=== PATIENT | female | born 1960 | race Caucasian/White ===

== ENCOUNTER 2016-08-10 09:45 | Outpatient (CLI) | END 2016-08-10 09:46 | disposition home or self-care (01) ==

== ENCOUNTER 2016-08-24 10:26 | Outpatient (CLI) | payer BC | END 2016-08-24 10:27 | disposition home or self-care (01) | DX: E04.9 Nontoxic goiter, unspecified (principal) ==

== ENCOUNTER 2016-10-11 08:19 | Outpatient (CLI) | payer BC | END 2016-10-11 08:20 | disposition home or self-care (01) | DX: D69.6 Thrombocytopenia, unspecified (principal) ==

== ENCOUNTER 2017-09-05 09:21 | Outpatient (CLI) | payer BC ==
[2017-09-05 10:33] LABS: ALBUMIN/GLOBULIN RATIO 1.3 (1.0-2.2); BILIRUBIN,TOTAL 0.6 mg/dL (0.2-1.0); CALCIUM 8.9 mg/dL (8.5-10.3); CREATININE 0.6 mg/dL (0.4-1.0); TOTAL PROTEIN 7.1 g/dL (6.7-8.2)
== END 2017-09-05 09:22 | disposition home or self-care (01) ==
LOC: LAB 09:21
PROVIDERS: ATTEND Nurse Practitioner Primary Care
DX: R55 Syncope and collapse (principal); I10 Essential (primary) hypertension; Z79.899 Other long term (current) drug therapy
CPT/HCPCS: 36415; 80053; 82306; 84443; 86200

== ENCOUNTER 2017-09-06 11:39 | Outpatient (CLI) | payer BC ==
[2017-09-06 12:09] LABS: BASOPHILS # (AUTO) 0.1 10^3/uL (0.0-0.1); BASOPHILS % (AUTO) 1.4 %; EOSINOPHILS # (AUTO) 0.1 10^3/uL (0.0-0.7); EOSINOPHILS % (AUTO) 2.9 %; LYMPHOCYTES # (AUTO) 2.2 10^3/uL (1.5-3.5); LYMPHOCYTES % (AUTO) 44.4 %; MEAN CORPUSCULAR HEMOGLOBIN 31.1 pg (27.0-31.0); MEAN CORPUSCULAR HGB CONC 33.2 g/dL (32.0-36.0); MEAN CORPUSCULAR VOLUME 93.5 fL (81.0-99.0); MEAN PLATELET VOLUME 7.9 fL (7.9-10.8); MONOCYTES # (AUTO) 0.5 10^3/uL (0.0-1.0); MONOCYTES % (AUTO) 9.1 %; NEUTROPHILS # (AUTO) 2.1 10^3/uL (1.5-6.6); NEUTROPHILS % (AUTO) 42.2 %; PLT - PLATELET COUNT 165 10^3/uL (130-450); RED CELL DISTRIBUTION WIDTH 14.4 % (12.0-15.0)
== END 2017-09-06 11:40 | disposition home or self-care (01) ==
LOC: LAB 11:39
PROVIDERS: ATTEND Nurse Practitioner Primary Care
DX: R55 Syncope and collapse (principal); I10 Essential (primary) hypertension; Z79.899 Other long term (current) drug therapy
CPT/HCPCS: 85025

== ENCOUNTER 2018-03-11 11:43 | Outpatient (CLI) | payer BC ==
--- NOTE | 2018-03-12 10:53 | Mammography Report ---
Procedure Date: 03/11/2018 Accession Number: [id number] / [id number] Procedure: MGN - Screening Mammo Dig Bilat CPT Code: FULL RESULT: EXAM: Screening Mammo Dig Bilat DATE: 03/11/2018 12:03 PM CLINICAL HISTORY: 57-year-old female with history of right breast cancer status post lumpectomy and radiation presents for screening mammogram. TECHNIQUE: Bilateral CC and MLO views were obtained. COMPARISON: 04/21/2016, 05/04/2015, 03/09/2014, 07/09/2013. FINDINGS: The breasts demonstrate heterogeneously dense fibroglandular parenchyma bilaterally. Postsurgical changes in the right breast are stable. There are typically benign coarse right breast calcifications. There are typically benign vascular calcifications in the left breast. No suspicious masses, clustered microcalcifications, or regions of architectural distortion are identified. IMPRESSION: Benign findings RECOMMENDATION: Routine annual screening unless otherwise clinically indicated. BIRADS CATEGORY 2: Benign findings STANDARD QUALIFYING STATEMENTS: 1. This examination was reviewed with the aid of Computer-Aided Detection (CAD). 2. A negative or benign imaging report should not delay biopsy if clinically suspicious findings are present. Consider surgical consultation if warrented. More than 5% of cancers are not identified by imaging. 3. Dense breasts may obscure an underlying neoplasm.
== END 2018-03-11 11:44 | disposition home or self-care (01) ==
LOC: DI.N 11:43
PROVIDERS: ATTEND Radiology Diagnostic Radiology
DX: Z12.31 Encounter for screening mammogram for malignant neoplasm of breast (principal); Z85.3 Personal history of malignant neoplasm of breast
CPT/HCPCS: 77067

== ENCOUNTER 2019-07-11 09:17 | Outpatient (CLI) | payer BC ==
--- NOTE | 2019-07-14 09:28 | Mammography Report ---
Reason: ROUTINE MAMMO Procedure Date: 07/11/2019 Accession Number: [id number] / [id number] Procedure: RENEE - Screening Mammo w/Allen CPT Code: Final Report FULL RESULT: EXAM: Screening Mammo w/Allen DATE: 07/11/2019 9:57 AM CLINICAL HISTORY: Screening encounter. History of late childbearing. Personal history of breast cancer status post right lumpectomy in 2013. TECHNIQUE: (B) - Bilateral CC and MLO views were obtained. Right laterally exaggerated CC views obtained COMPARISON: 03/11/2018 through 07/09/2013. PARENCHYMAL PATTERN: (D) - The breast(s) demonstrate(s) heterogeneously dense fibroglandular parenchyma. FINDINGS: Postlumpectomy changes in the right breast are again seen without suspicious interval change, typically benign. There are no suspicious masses, calcifications, or areas of distortion. IMPRESSION: Benign findings. BI-RADS category 2. RECOMMENDATION: (ANNUAL) - Recommend routine annual screening mammography. BI-RADS CATEGORY: (2) - Benign Findings. STANDARD QUALIFYING STATEMENTS: 1. This examination was not reviewed with the aid of Computer-Aided Detection (CAD). 2. A negative or benign imaging report should not preclude biopsy if clinically suspicious findings are present. 3. Dense breasts may obscure an underlying neoplasm. 4. This examination was reviewed with the aid of 3D breast imaging (tomosynthesis).
== END 2019-07-11 09:18 | disposition home or self-care (01) ==
LOC: DI 09:17
PROVIDERS: ATTEND Registered Nurse
DX: Z12.31 Encounter for screening mammogram for malignant neoplasm of breast (principal); Z85.3 Personal history of malignant neoplasm of breast
CPT/HCPCS: 77063; 77067

== ENCOUNTER 2019-07-11 09:19 | Outpatient (CLI) | payer BC ==
--- NOTE | 2019-07-12 14:03 | XRAY Report ---
Reason: HX OF BREAST CANCER Procedure Date: 07/11/2019 Accession Number: [id number] / [id number] Procedure: XR - Chest 2 View X-Ray CPT Code: 27710 Final Report FULL RESULT: EXAM: CHEST RADIOGRAPHY EXAM DATE: 07/11/2019 09:58 AM. CLINICAL HISTORY: History of breast cancer. COMPARISON: None. TECHNIQUE: 2 views. FINDINGS: Lungs/Pleura: No focal opacities evident. No pleural effusion. No pneumothorax. Normal volumes. Mediastinum: Heart and mediastinal contours are unremarkable. Other: None. IMPRESSION: Normal 2-view chest radiography. RADIA
--- NOTE | 2019-07-14 08:36 | DEXA Report ---
Reason: DGN. JNT DISEASE OF BILAT 1ST [facility] JNTS Procedure Date: 07/11/2019 Accession Number: [id number] / [id number] Procedure: DEX - Dexa Spine and/or Hip CPT Code: Final Report FULL RESULT: EXAM: Dexa Spine and/or Hip DATE: 07/11/2019 10:02 AM CLINICAL HISTORY: DGN. JNT DISEASE OF BILAT 1ST [facility] JNTS TECHNIQUE: Dual energy x-ray absorptiometry (DXA) was performed on a [employer] System. Regions measured are the AP Spine, femoral neck, and if needed forearm. COMPARISON: None. In accordance with the International Society for Clinical Densitometry (ISCD) guidelines, data from previous exams may be reanalyzed using current recommendations and techniques. This is done to allow a more accurate basis for comparison with the current study. FINDINGS: The data for the lumbar spine is as follows: BMD (g/cm/cm) T-SCORE Z-SCORE REGION L1 1.213 0.7 1.2 L2 1.348 1.2 1.8 L3 1.465 2.2 2.7 L4 1.370 1.4 2.0 TOTAL 1.354 1.4 2.0 NOTE: All evaluable vertebrae are used for classification The data for the hip is as follows: BMD (g/cm/cm) T-SCORE Z-SCORE REGION Neck 1.154 0.8 1.6 TOTAL 1.128 1.0 1.4 NOTE: The femoral neck or total proximal femur, whichever is lowest, is used for classification. IMPRESSION: THE WHO CLASSIFICATION BASED ON THE INTERNATIONAL REFERENCE STANDARD IS NORMAL. THE FRACTURE RISK IS NOT INCREASED. RECOMMENDATION: Patients with diagnosis of osteoporosis or osteopenia should have regular bone mineral density assessment. For those eligible for Medicare, routine testing is allowed once every 2 years. Testing frequency can be increased for patients who have rapidly progressing disease or for those who are receiving medical therapy to restore bone mass. COMMENT: World Health Organization (WHO) definitions for osteoporosis and osteopenia: NORMAL BMD: T-score at -1.0 or higher, fracture risk is low OSTEOPENIA BMD: T-score between -1.0 and -2.5, fracture risk is increased. OSTEOPOROSIS BMD: T-score at -2.5 or lower, fracture risk is high. National Osteoporosis Foundation recommends: 1. Obtain adequate dietary calcium (at least 1200 mg per day) and vitamin D (400-800 international units per day). 2. Participate, as appropriate, in regular weightbearing and muscle-strengthening exercise. 3. Avoid tobacco use and reduce alcohol and caffeine intake. 4. For more detailed information see the website at www.NOF.org.
== END 2019-07-11 09:20 | disposition home or self-care (01) ==
LOC: DI 09:19
PROVIDERS: ATTEND Registered Nurse
DX: Z78.0 Asymptomatic menopausal state (principal); Z85.3 Personal history of malignant neoplasm of breast
CPT/HCPCS: 71046; 77080

== ENCOUNTER 2019-07-23 09:59 | Outpatient (CLI) | payer BC ==
[2019-07-23 10:11] LABS: BASOPHILS % (AUTO) 0.4 %; EOSINOPHILS # (AUTO) 0.2 10^3/uL (0.0-0.7); EOSINOPHILS % (AUTO) 2.6 %; LYMPHOCYTES # (AUTO) 3.4 10^3/uL (1.5-3.5); LYMPHOCYTES % (AUTO) 45.3 %; MEAN CORPUSCULAR HEMOGLOBIN 28.6 pg (27.0-31.0); MEAN CORPUSCULAR HGB CONC 31.9 g/dL (32.0-36.0); MEAN CORPUSCULAR VOLUME 89.7 fL (81.0-99.0); MEAN PLATELET VOLUME 9.1 fL (7.9-10.8); MONOCYTES # (AUTO) 0.4 10^3/uL (0.0-1.0); MONOCYTES % (AUTO) 5.9 %; NEUTROPHILS # (AUTO) 3.4 10^3/uL (1.5-6.6); NEUTROPHILS % (AUTO) 45.5 %; PLT - PLATELET COUNT 226 10^3/uL (130-450); RED BLOOD COUNT 4.55 10^6/uL (4.20-5.40); RED CELL DISTRIBUTION WIDTH 13.8 % (12.0-15.0); WHITE BLOOD COUNT 7.4 x10^3/uL (4.8-10.8)
[2019-07-23 10:35] LABS: ALBUMIN 4.4 g/dL (3.2-5.5); ALBUMIN/GLOBULIN RATIO 1.4 (1.0-2.2); ALKALINE PHOSPHATASE 76 IU/L (42-121); ALT ALANINE AMINOTRANSFERASE 22 IU/L (10-60); AST ASPARTATE AMINOTRANSFERASE 25 IU/L (10-42); BILIRUBIN,TOTAL 0.5 mg/dL (0.2-1.0); BUN - BLOOD UREA NITROGEN 17 mg/dL (6-20); CALCIUM 9.4 mg/dL (8.5-10.3); CARBON DIOXIDE - CO2 28 mmol/L (21-32); CHLORIDE 100 mmol/L (101-111); CHOL/HDL RATIO 3.7 (<4.4); CHOLESTEROL 277 mg/dL; CREATININE 0.8 mg/dL (0.4-1.0); GFR - MDRD 73 (>89); GLUCOSE 156 mg/dL (70-100); HB2 TOTAL 13.2 g/dL; HDL CHOLESTEROL 75 mg/dL; HEMOGLOBIN A1C 0.65 g/dL; HEMOGLOBIN A1C % 6.7 % (4.6-6.2); LDL CHOLESTEROL,CALCULATED 170 mg/dL; LDL/HDL RATIO 2.3 (<4.4); SODIUM 139 mmol/L (135-145); TOTAL PROTEIN 7.5 g/dL (6.7-8.2); VLDL CHOLESTEROL 32 mg/dL
== END 2019-07-23 10:00 | disposition home or self-care (01) ==
LOC: LAB 09:59
PROVIDERS: ATTEND Registered Nurse
DX: I10 Essential (primary) hypertension (principal); Z85.3 Personal history of malignant neoplasm of breast; K21.0 Gastro-esophageal reflux disease with esophagitis; E78.2 Mixed hyperlipidemia; F32.9 Major depressive disorder, single episode, unspecified; F41.9 Anxiety disorder, unspecified
CPT/HCPCS: 36415; 80053; 80061; 83036; 83721; 84443; 85025; 86304

== ENCOUNTER 2019-12-09 09:27 | Outpatient (CLI) | payer BC, OTHER ==
[2019-12-09 13:35] LABS: HEMOGLOBIN A1C 0.49 g/dL; HEMOGLOBIN A1C % 5.6 % (4.6-6.2)
[2019-12-09 13:42] LABS: CREATININE 1.5 mg/dL (0.4-1.0)
[2019-12-09 13:48] LABS: CALCIUM 14.8 mg/dL (8.5-10.3); CREATININE,URINE 43.2 mg/dL; MICROALBUM/CREATININE RATIO,UR 23.1 ug/mg (<30.0)
== END 2019-12-09 23:59 | disposition home or self-care (01) ==
LOC: LAB.WCP 09:27
PROVIDERS: ATTEND Registered Nurse
DX: R73.9 Hyperglycemia, unspecified (principal)
CPT/HCPCS: 36415; 80048; 82043; 82570; 83036

== ENCOUNTER 2019-12-10 13:45 | Outpatient (CLI) | payer OTHER ==
[2019-12-10 17:46] LABS: BASOPHILS # (AUTO) 0.1 10^3/uL (0.0-0.1); BASOPHILS % (AUTO) 0.5 %; EOSINOPHILS # (AUTO) 0.1 10^3/uL (0.0-0.7); HGB - HEMOGLOBIN 12.7 g/dL (12.0-16.0); LYMPHOCYTES # (AUTO) 3.5 10^3/uL (1.5-3.5); MEAN CORPUSCULAR HEMOGLOBIN 28.5 pg (27.0-31.0); MEAN CORPUSCULAR HGB CONC 31.8 g/dL (32.0-36.0); MEAN CORPUSCULAR VOLUME 89.7 fL (81.0-99.0); MEAN PLATELET VOLUME 10.5 fL (7.9-10.8); MONOCYTES # (AUTO) 1.1 10^3/uL (0.0-1.0); MONOCYTES % (AUTO) 10.1 %; NEUTROPHILS # (AUTO) 6.2 10^3/uL (1.5-6.6); NEUTROPHILS % (AUTO) 55.9 %; PLT - PLATELET COUNT 317 10^3/uL (130-450); RED BLOOD COUNT 4.46 10^6/uL (4.20-5.40); RED CELL DISTRIBUTION WIDTH 13.7 % (12.0-15.0); WHITE BLOOD COUNT 11.1 x10^3/uL (4.8-10.8)
[2019-12-10 18:45] LABS: ALBUMIN 4.4 g/dL (3.2-5.5); ALBUMIN/GLOBULIN RATIO 1.2 (1.0-2.2); BILIRUBIN,TOTAL 0.6 mg/dL (0.2-1.0); CREATININE 1.8 mg/dL (0.4-1.0); TOTAL PROTEIN 8.2 g/dL (6.7-8.2)
[2019-12-10 19:00] LABS: CALCIUM 15.4 mg/dL (8.5-10.3)
[2019-12-12 17:40] LABS: ALBUMIN 4.2 g/dL (3.8-4.8); ALPHA 1 GLOBULIN 0.4 g/dL (0.2-0.3); BETA 1 GLOBULIN 0.5 g/dL (0.4-0.6); BETA 2 GLOBULIN 0.5 g/dL (0.2-0.5); GAMMA GLOBULIN 1.1 g/dL (0.8-1.7)
== END 2019-12-10 23:59 | disposition home or self-care (01) ==
LOC: LAB.WCP 13:45
PROVIDERS: ATTEND Family Medicine
DX: E83.52 Hypercalcemia (principal); Z85.3 Personal history of malignant neoplasm of breast; M54.5 Low back pain; M54.6 Pain in thoracic spine
CPT/HCPCS: 36415; 80053; 81599; 82306; 83615; 83883; 83970; 84155; 84165; 85025

== ENCOUNTER 2019-12-10 14:13 | Outpatient (CLI) | payer OTHER ==
--- NOTE | 2019-12-11 03:11 | XRAY Report ---
Reason: THORACIC BACK PAIN Procedure Date: 12/10/2019 Accession Number: [id number] / [id number] Procedure: WCP - Thoracic Spine 2 View CPT Code: Final Report FULL RESULT: EXAM: THORACIC SPINE RADIOGRAPHY EXAM DATE: 12/10/2019 02:13 PM. CLINICAL HISTORY: THORACIC BACK PAIN. COMPARISON: CHEST 2 VIEW 07/11/2019 9:58 AM. TECHNIQUE: 2 views. FINDINGS: Alignment: Slight rightward curvature may be positional. No spondylolisthesis or scoliosis. Bones: No fractures or bone lesions. Disks: Multilevel disk height loss and endplate sclerosis/osteophytosis noted primarily in the mid and lower thoracic spine. Soft Tissues: Normal. The visualized lungs and cardiomediastinal silhouette are normal. IMPRESSION: 1. No evidence of acute pathology in the thoracic spine. 2. Mild to moderate mid-lower thoracic degenerative change. RADIA
--- NOTE | 2019-12-11 03:14 | XRAY Report ---
Reason: ACUTE LOW BACK PAIN Procedure Date: 12/10/2019 Accession Number: [id number] / [id number] Procedure: WCP - Lumbar Spine 2 View CPT Code: Final Report FULL RESULT: EXAM: LUMBOSACRAL SPINE RADIOGRAPHY EXAM DATE: 12/10/2019 02:13 PM. CLINICAL HISTORY: ACUTE LOW BACK PAIN. COMPARISONS: None. TECHNIQUE: 2 views. FINDINGS: Alignment: There is slight leftward curvature at the thoracolumbar junction. Trace anterolisthesis is visualized at L3 on L4. Bones: Five [id number] lumbar vertebral bodies are present. No fractures or bone lesions. Disks: Mild to moderate disk height loss is visualized at L1-L2, L2-L3 and L3-L4. Associated sclerosis and osteophytosis are noted. Mild degenerative changes noted at L4-L5. Facets: Moderate facet hypertrophy and sclerosis is noted in the mid and lower lumbar spine. Sacroiliac Joints: Unremarkable. Soft Tissues: Mild fecal stasis is noted. IMPRESSION: 1. No evidence of acute pathology in the lumbar spine. 2. Multilevel degenerative disk disease and mid-lower lumbar facet arthropathy. RADIA
== END 2019-12-10 23:59 | disposition home or self-care (01) ==
LOC: DI.WCP 14:13
PROVIDERS: ATTEND Family Medicine
DX: M51.34 Other intervertebral disc degeneration, thoracic region (principal); M51.36 Other intervertebral disc degeneration, lumbar region; M47.816 Spondylosis without myelopathy or radiculopathy, lumbar region; Z85.3 Personal history of malignant neoplasm of breast; E83.52 Hypercalcemia
CPT/HCPCS: 36415; 72070; 72100; 80053; 82306; 83615; 83883; 83970; 84155; 84165; 85025

== ENCOUNTER 2019-12-11 08:00 | Outpatient (CLI) | payer OTHER ==
[2019-12-11 10:19] LABS: MAGNESIUM 2.3 mg/dL (1.7-2.8); PHOSPHORUS 4.4 mg/dL (2.5-4.6)
== END 2019-12-11 23:59 | disposition home or self-care (01) ==
LOC: LAB 08:00
PROVIDERS: ATTEND Family Medicine
DX: E83.52 Hypercalcemia (principal)
CPT/HCPCS: 83735; 84100; 84443

== ENCOUNTER 2019-12-11 09:41 | Emergency (ER) | payer OTHER ==
[2019-12-11] MEDS ORDERED: CALCITONIN NASAL SPRAY NAS STA (09:48)
[2019-12-11] MEDS ORDERED: SODIUM CHLORIDE 0.9% 1,000 ML IV ONE (09:51)
[2019-12-11] MEDS ORDERED: ZOLEDRONIC ACID 4 MG in SODIUM CHLORIDE 0.9% 100ML 100 ML IV STA (10:01)
[2019-12-11 10:21] LABS: BASOPHILS # (AUTO) 0.1 10^3/uL (0.0-0.1); BASOPHILS % (AUTO) 0.6 %; EOSINOPHILS # (AUTO) 0.1 10^3/uL (0.0-0.7); EOSINOPHILS % (AUTO) 1.2 %; HGB - HEMOGLOBIN 12.4 g/dL (12.0-16.0); LYMPHOCYTES # (AUTO) 4.2 10^3/uL (1.5-3.5); LYMPHOCYTES % (AUTO) 39.1 %; MEAN CORPUSCULAR HEMOGLOBIN 28.4 pg (27.0-31.0); MEAN CORPUSCULAR HGB CONC 32.6 g/dL (32.0-36.0); MEAN PLATELET VOLUME 9.9 fL (7.9-10.8); MONOCYTES # (AUTO) 1.1 10^3/uL (0.0-1.0); MONOCYTES % (AUTO) 9.7 %; NEUTROPHILS # (AUTO) 5.3 10^3/uL (1.5-6.6); NEUTROPHILS % (AUTO) 48.8 %; PLT - PLATELET COUNT 310 10^3/uL (130-450); RED BLOOD COUNT 4.37 10^6/uL (4.20-5.40); RED CELL DISTRIBUTION WIDTH 13.6 % (12.0-15.0); WHITE BLOOD COUNT 10.8 x10^3/uL (4.8-10.8)
[2019-12-11 10:35] LABS: ALBUMIN 4.4 g/dL (3.2-5.5); ALBUMIN/GLOBULIN RATIO 1.2 (1.0-2.2); BILIRUBIN,TOTAL 0.4 mg/dL (0.2-1.0); CREATININE 1.5 mg/dL (0.4-1.0)
[2019-12-11] MEDS: ZOLEDRONIC ACID 4 MG/100 ML 4 MG/100 ML BAG IV ONE ×2 (10:38→10:39)
--- NOTE | 2019-12-11 11:38 | ED Physician Documentation ---
History of Present Illness - Stated complaint Stated Complaint: ABNORMAL LABS - Chief complaint Chief Complaint: General - History obtained from History obtained from: Patient - History of Present Illness Timing: How many days ago (4) - Additonal information Additional information: 59-year-old female with a prior history of HR positive HER-2 negative breast can cer underwent treatment with radiation and tamoxifen and she finished her tamoxifen in July of last year. She has begun to feel pain in her back on the right side beginning in August and she is had persistence of this pain and worsening. She has been seen by her primary and she is sent to the emergency department today because of an elevated calcium. Her calcium is over 15 and her symptoms are constipation and back pain. She has dry mouth as well. Review of Systems Constitutional: reports: Fatigue. denies: Fever, Chills, Myalgias Eyes: denies: Decreased vision Ears: denies: Ear pain Nose: denies: Rhinorrhea / runny nose, Congestion Throat: reports: Other (Dry mucous membranes). denies: Sore throat Cardiac: reports: Chest pain / pressure. denies: Palpitations, Pedal edema, Calf pain Respiratory: denies: Dyspnea, Cough GI: reports: Constipation. denies: Abdominal Pain, Nausea, Vomiting : denies: Dysuria, Frequency Skin: denies: Rash Musculoskeletal: reports: Back pain. 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 - Past Surgical History Past Surgical History: Yes /PRODUCT PICKER: section, Hysterectomy, Other - Present Medications Home Medications: Ambulatory Orders Medication Instructions Recorded Confirmed Hyoscyamine [Levsin] 0.125 mg SL Q4H PRN #10 tablet 02/14/15 12/28/15 Venlafaxine [Effexor] 150 mg PO DAILY 02/14/15 12/28/15 Zolpidem Tartrate [Ambien] 10 mg PO ONCE 02/14/15 12/28/15 Cholecalciferol [Vitamin D3] 1,000 unit PO DAILY 12/28/15 12/28/15 Famotidine [Pepcid] 20 - 40 mg PO DAILY PRN 12/28/15 12/28/15 Tamoxifen [(None)] 20 mg PO DAILY 12/28/15 12/28/15 Vitamin B Complex 1 each PO DAILY 12/28/15 12/28/15 Calcitonin [Fortical] 1 sprays KETTY DAILY #1 bottle 12/11/19 - Allergies Allergies/Adverse Reactions: Allergies Allergy/AdvReac Type Severity Reaction Status Date / Time No Known Drug Allergies Allergy Verified 12/11/19 09:50 - Social History Does the pt smoke?: No Smoking Status: Never smoker Does the pt drink ETOH?: Yes Does the pt have substance abuse?: No - Immunizations Immunizations are current?: Yes PD ED PE NORMAL - Vitals Vital signs reviewed: Yes (Hypertensive) - General General: Alert and oriented X 3, No acute distress, Well developed/nourished - HEENT HEENT: Atraumatic, PERRL, EOMI, Ears normal - Neck Neck: Supple, no meningeal sign, No bony TTP - Cardiac Cardiac: RRR, No murmur - Respiratory Respiratory: No respiratory distress, Clear bilaterally, Other (Chest wall point tenderness to the posterior lateral right chest wall.) - Abdomen Abdomen: Soft, Non tender - Back Back: No CVA TTP, No spinal TTP - Derm Derm: Normal color, Warm and dry, No rash - Extremities Extremities: No deformity, No edema, No calf tenderness / cord - Neuro Neuro: Alert and oriented X 3, 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, No motor deficit, No sensory deficit, Normal speech Eye Opening: Spontaneous Motor: Obeys Commands Verbal: Oriented GCS Score: 15 - Psych Psych: Normal mood, Normal affect Results - Vitals Vitals: Vital Signs - 24 hr 12/11/19 12/11/19 12/11/19 09:45 11:31 13:20 Temperature 36.8 C Heart Rate 98 70 74 Respiratory 16 16 16 Rate Blood Pressure 172/131 H 130/69 134/68 H O2 Saturation 94 92 94 Oxygen O2 Source Room air - EKG (time done) 1025 Rate: Rate (enter#) (85) Rhythm: NSR, LAE Intervals: Prolonged QT QRS: LVH Ischemia: Q waves Compare to prior EKG: Old EKG unavailable Computer interpretation: Agree with computer - Labs Labs: Laboratory Tests 12/11/19 12/11/19 12/11/19 10:05 10:05 12:30 WBC 10.8 RBC 4.37 Hgb 12.4 Hct 38.0 MCV 87.0 MCH 28.4 MCHC 32.6 RDW 13.6 Plt Count 310 MPV 9.9 Neut # (Auto) 5.3 Lymph # (Auto) 4.2 H [place] # (Auto) 1.1 H Eos # (Auto) 0.1 Baso # (Auto) 0.1 Absolute Nucleated RBC 0.00 Nucleated RBC % 0.0 Sodium 134 L Potassium 3.6 Chloride 94 L Carbon Dioxide 29 Anion Gap 11.0 BUN 28 H Creatinine 1.5 H Estimated GFR (MDRD) 35 L Glucose 112 H Calcium 15.0 H* Total Bilirubin 0.4 AST 32 ALT 19 Alkaline Phosphatase 136 H Total Protein 8.0 Albumin 4.4 Globulin 3.6 Albumin/Globulin Ratio 1.2 Lipase 28 Urine Color YELLOW Urine Clarity CLEAR Urine pH 5.5 Ur Specific [place] 1.020 Urine Protein NEGATIVE Urine Glucose (UA) NEGATIVE Urine Ketones NEGATIVE Urine Occult Blood NEGATIVE Urine Nitrite NEGATIVE Urine Bilirubin NEGATIVE Urine Urobilinogen 0.2 (NORMAL) Ur Leukocyte Esterase NEGATIVE Ur Microscopic Review NOT INDICATED Urine Culture Comments NOT INDICATED PD MEDICAL DECISION MAKING - ED course Complexity details: reviewed old records, reviewed results, re-evaluated patient, considered differential, d/w patient ED course: 59-year-old female with a prior history of breast cancer completing her treatment has now developed bone pain and an elevated calcium concerning for recurrence. She has outpatient imaging set up at this point and is in the emergency department today for treatment acutely of hypercalcemia. Here in the emergency department she is administered normal saline as well as zolendronic acid. We do not have salmon calcitonin available in the ER. I was able to review the patient's films from yesterday she had a film of her thoracic and lumbar spine both showed extensive metastases to all of the ribs the spine and the pelvis. I shared these with the patient I did call the radiologist and reviewed the films with him. I have asked the patient to restart her tamoxifen immediately. She will follow-up tomorrow for further diagnostic imaging studies and she will get the salmon calcitonin at the local pharmacy. I have indicated to her to take 2 sprays today and 1/day following that. Departure - Departure Disposition: 01 Home, Self Care Clinical Impression: Hypercalcemia, Bony metastasis Condition: Stable Instructions: Zoledronic Acid injection Hypercalcemia Oncology, Hypercalcemia Dc Follow-Up: Gillian Whitehead DO [Primary Care Provider] - Prescriptions: Calcitonin [Fortical] 1 sprays KETTY DAILY #1 bottle Discharge Date/Time: 12/11/19 13:21
[2019-12-11 13:09] LABS: BILIRUBIN,URINE NEGATIVE (NEGATIVE); GLUCOSE, URINE (UA) NEGATIVE (NEGATIVE); KETONES,URINE (UA) NEGATIVE (NEGATIVE); LEUKOCYTE ESTERASE, URINE NEGATIVE (NEGATIVE); NITRITE,URINE NEGATIVE (NEGATIVE); OCCULT BLOOD,URINE NEGATIVE (NEGATIVE); PH,URINE 5.5 PH (5.0-7.5); PROTEIN,URINE NEGATIVE (NEGATIVE); UROBILINOGEN,URINE 0.2 (NORMAL) E.U./dL (NORMAL)
[2019-12-11 13:10] LABS: CLARITY,URINE CLEAR (CLEAR)
[2019-12-11] MEDS ORDERED: traMADol 50 MG TABLET PO STA (13:14)
[2019-12-11 13:21] VITALS: BP 134/68
== END 2019-12-11 13:21 | disposition home or self-care (01) ==
LOC: ED 09:41
DX: E83.52 Hypercalcemia (principal); C79.51 Secondary malignant neoplasm of bone; Z85.3 Personal history of malignant neoplasm of breast
CPT/HCPCS: 36415; 80053; 81003; 83690; 83735; 84100; 84443; 85025; 93005; 96365; 99284; A9270; J3489; 81001; 87086

== ENCOUNTER 2019-12-14 11:09 | Outpatient (CLI) | payer OTHER | END 2019-12-14 11:10 | disposition critical access hospital (66) | LOC: EMS 11:09 | PROVIDERS: ATTEND Surgery | DX: R10.9 Unspecified abdominal pain (principal); R11.10 Vomiting, unspecified | CPT/HCPCS: A0425; A0429 ==

== ENCOUNTER 2019-12-14 11:25 | Emergency (ER) | payer OTHER ==
[2019-12-14] MEDS ORDERED: SODIUM CHLORIDE 0.9% 1,000 ML IV ONE ×3 (12:21→15:35)
[2019-12-14] MEDS ORDERED: METOCLOPRAMIDE 10 MG/2 ML VIAL IVP STA (12:21)
[2019-12-14] MEDS ORDERED: FAMOTIDINE 20 MG/2 ML SYRINGE IVP STA (12:52)
[2019-12-14] MEDS ORDERED: HYDROmorphone 1 MG/ML CARPUJECT IVP STA ×2 (12:52→15:35)
--- NOTE | 2019-12-14 12:53 | ED Physician Documentation ---
PD HPI NVD - Stated complaint Stated Complaint: ABD PX - Chief complaint Chief Complaint: General - History obtained from History obtained from: Patient - History of Present Illness Timing - onset: How many days ago (13) Timing - duration: Days (13 days of constipation with minimal stool out few days ago with enema and stool softener. Has had cramping pains the past several days. Last night into today with some vomiting of brown stomach contents, no noted blood nor coffeegrounds. called PMD and referred to ER to ensure no SBO or such. Had recent MRI spine 3 days ago at [facility] due to recent Dx of hypercalcemia and spine mets from prior breast CA.) Timing - details: Gradual onset, Still present, Waxing and waning Associated symptoms: Abdominal pain (cramping), Loss of appetite. No: Fever, Near syncope / syncope, Dysuria Contributing factors: No: Sick contact, Bad food, Diabetes Improved by: No: Vomiting Worsened by: Eating Similar symptoms before: Has not had sx before Recently seen: Clinic, Emergency Dept (elevated calcium level and had abd cramps, diarrhea, nausea, and started on meds several days ago. Having persistent constipation.) Review of Systems Constitutional: reports: Fatigue. denies: Fever, Chills, Myalgias, Weight Loss Nose: denies: Rhinorrhea / runny nose, Congestion Throat: denies: Sore throat Respiratory: denies: Cough GI: reports: Abdominal Pain, Nausea, Vomiting, Constipation. 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 ) - Present Medications Home Medications: Ambulatory Orders Medication Instructions Recorded Confirmed Venlafaxine [Effexor] 150 mg PO DAILY 02/14/15 12/28/15 Zolpidem Tartrate [Ambien] 10 mg PO ONCE 02/14/15 12/28/15 Cholecalciferol [Vitamin D3] 1,000 unit PO DAILY 12/28/15 12/28/15 Famotidine [Pepcid] 20 - 40 mg PO DAILY PRN 12/28/15 12/28/15 Tamoxifen [(None)] 20 mg PO DAILY 12/28/15 12/28/15 Vitamin B Complex 1 each PO DAILY 12/28/15 12/28/15 Calcitonin [Fortical] 1 sprays KETTY DAILY #1 bottle 12/11/19 - Allergies Allergies/Adverse Reactions: Allergies Allergy/AdvReac Type Severity Reaction Status Date / Time acetaminophen [From Vicodin] AdvReac Nausea Verified 12/14/19 12:07 hydrocodone [From Vicodin] AdvReac Nausea Verified 12/14/19 12:07 - Social History Does the pt smoke?: No Smoking Status: Never smoker Does the pt drink ETOH?: Yes Does the pt have substance abuse?: No - Immunizations Immunizations are current?: Yes PD ED PE NORMAL - Vitals Vital signs reviewed: Yes - General General: Alert and oriented X 3, Well developed/nourished - HEENT HEENT: Pharynx benign. No: Moist mucous membranes - Neck Neck: Supple, no meningeal sign, No adenopathy - Cardiac Cardiac: RRR, No murmur - Respiratory Respiratory: Clear bilaterally - Abdomen Abdomen: Normal bowel sounds, Soft, Non distended, No organomegaly, Other (mild upper tenderness without percussion nor rebound tenderness. Bowel sounds actually normal to somewhat hyperactive. ) Results - Vitals Vitals: Vital Signs - 24 hr 12/14/19 12/14/19 12/14/19 11:57 15:00 16:40 Temperature 37.0 C Heart Rate 67 70 66 Respiratory 16 12 16 Rate Blood Pressure 153/82 H 136/93 H 152/89 H O2 Saturation 99 99 99 Oxygen O2 Source Nasal cannula - Labs Labs: Laboratory Tests 12/14/19 12/14/19 12/14/19 11:58 11:58 13:05 WBC 8.4 RBC 3.81 L Hgb 10.6 L Hct 32.8 L MCV 86.1 MCH 27.8 MCHC 32.3 RDW 13.5 Plt Count 283 MPV 9.8 Neut # (Auto) 5.9 Lymph # (Auto) 1.7 [place] # (Auto) 0.7 Eos # (Auto) 0.1 Baso # (Auto) 0.0 Absolute Nucleated RBC 0.00 Nucleated RBC % 0.0 Sodium 135 Potassium 2.7 L Chloride 95 L Carbon Dioxide 28 Anion Gap 12.0 BUN 18 Creatinine 0.9 Estimated GFR (MDRD) 64 L Glucose 132 H Lactic Acid 1.5 Calcium 9.6 Magnesium 2.1 Total Bilirubin 0.8 AST 27 ALT 14 Alkaline Phosphatase 127 H Total Protein 7.2 Albumin 3.6 Globulin 3.6 Albumin/Globulin Ratio 1.0 Lipase 24 Urine Color Urine Clarity Urine pH Ur Specific [place] Urine Protein Urine Glucose (UA) Urine Ketones Urine Occult Blood Urine Nitrite Urine Bilirubin Urine Urobilinogen Ur Leukocyte Esterase Urine RBC Urine WBC Ur Squamous Epith Cells Urine Bacteria Ur Microscopic Review Urine Culture Comments 12/14/19 14:55 WBC RBC Hgb Hct MCV MCH MCHC RDW Plt Count MPV Neut # (Auto) Lymph # (Auto) [place] # (Auto) Eos # (Auto) Baso # (Auto) Absolute Nucleated RBC Nucleated RBC % Sodium Potassium Chloride Carbon Dioxide Anion Gap BUN Creatinine Estimated GFR (MDRD) Glucose Lactic Acid Calcium Magnesium Total Bilirubin AST ALT Alkaline Phosphatase Total Protein Albumin Globulin Albumin/Globulin Ratio Lipase Urine Color YELLOW Urine Clarity CLEAR Urine pH 7.5 Ur Specific [place] 1.010 Urine Protein NEGATIVE Urine Glucose (UA) NEGATIVE Urine Ketones 15 H Urine Occult Blood NEGATIVE Urine Nitrite NEGATIVE Urine Bilirubin NEGATIVE Urine Urobilinogen 0.2 (NORMAL) Ur Leukocyte Esterase TRACE H Urine RBC 0-5 Urine WBC 6-10 H Ur Squamous Epith Cells NONE SEEN Urine Bacteria Moderate H Ur Microscopic Review INDICATED Urine Culture Comments INDICATED - Rads (name of study) abd/pelvic CT Radiology: Prelim report reviewed (multiple spinal mets as previously known. No obstruction pattern. Large stool burden. Left ovarian cyst, recommend U/S at 6- 12 months. ), See rad report PD MEDICAL DECISION MAKING - ED course Complexity details: reviewed results (no obstruction pattern on CT. No organ mets. Known spinal mets (as compared with MRI report from [facility] from 3 days ago as well). Presume her constipation relates to the recent hypercalcemia and then pain med use (constipation started a week before any opioids). ), re-evaluated patient (She is feeling less nausea with IV meds, and more energy with fluids. Pain improved with IV dilaudid. Offered digital exam but she says she did not feel the vault was impacted. And declined enema here. She has Miralax at home and will use that vigorously. She has pain and nausea meds already Rx. Main issue here was to exclude bowel obstruction or such and some hydration/symptoms relief. ), considered differential, d/w patient, d/w family ( came to ED for discussion of results and plan. ) Departure - Departure Disposition: 01 Home, Self Care Clinical Impression: Hypokalemia, Bony metastasis Constipation Qualifiers: Constipation type: unspecified constipation type Qualified Code(s): K59.00 - Constipation, unspecified Nausea and vomiting Qualifiers: Vomiting type: unspecified Vomiting Intractability: non-intractable Qualified Code(s): R11.2 - Nausea with vomiting, unspecified Condition: Stable Record reviewed to determine appropriate education?: Yes Follow-Up: Gillian Whitehead DO [Primary Care Provider] - Comments: Your hypercalcemia seems to be improved with a level is now down to 9.6. The medication and treatment did bring your potassium level down as well and it is 2.7. Add a potassium supplement once or twice daily for the next several days to a week. Continue your other medications. Continue pain medications as discussed for your back pains. Stay well-hydrated. Use the MiraLAX that you have every 1-2 hours this evening and into tomorrow while awake until you start having looser bowel movements and then decrease it to just twice a day over the next week or so. Recheck if not improving well over the next couple of days. Discharge Date/Time: 12/14/19 16:30
[2019-12-14] MEDS ORDERED: IOVERSOL 320 100 ML VIAL IVP ONE ×2 (13:03→14:14)
[2019-12-14 13:10] LABS: BASOPHILS % (AUTO) 0.4 %; EOSINOPHILS # (AUTO) 0.1 10^3/uL (0.0-0.7); EOSINOPHILS % (AUTO) 0.6 %; HGB - HEMOGLOBIN 10.6 g/dL (12.0-16.0); LYMPHOCYTES # (AUTO) 1.7 10^3/uL (1.5-3.5); LYMPHOCYTES % (AUTO) 20.5 %; MEAN CORPUSCULAR HEMOGLOBIN 27.8 pg (27.0-31.0); MEAN CORPUSCULAR HGB CONC 32.3 g/dL (32.0-36.0); MEAN CORPUSCULAR VOLUME 86.1 fL (81.0-99.0); MEAN PLATELET VOLUME 9.8 fL (7.9-10.8); MONOCYTES # (AUTO) 0.7 10^3/uL (0.0-1.0); MONOCYTES % (AUTO) 7.9 %; NEUTROPHILS # (AUTO) 5.9 10^3/uL (1.5-6.6); NEUTROPHILS % (AUTO) 70.1 %; PLT - PLATELET COUNT 283 10^3/uL (130-450); RED BLOOD COUNT 3.81 10^6/uL (4.20-5.40); RED CELL DISTRIBUTION WIDTH 13.5 % (12.0-15.0); WHITE BLOOD COUNT 8.4 x10^3/uL (4.8-10.8)
[2019-12-14 13:22] LABS: ALBUMIN 3.6 g/dL (3.2-5.5); BILIRUBIN,TOTAL 0.8 mg/dL (0.2-1.0); CALCIUM 9.6 mg/dL (8.5-10.3); CREATININE 0.9 mg/dL (0.4-1.0); MAGNESIUM 2.1 mg/dL (1.7-2.8); TOTAL PROTEIN 7.2 g/dL (6.7-8.2)
[2019-12-14] MEDS ORDERED: POTASSIUM CHLOR 10 MEQ/100 ML 10 MEQ/100 ML BAG IV ONE (14:39)
--- NOTE | 2019-12-14 15:09 | CT Report ---
Reason: nausea and vomiting for couple days Procedure Date: 12/14/2019 Accession Number: [id number] / [id number] Procedure: CT - Abdomen/Pelvis W CPT Code: Final Report FULL RESULT: EXAM: CT ABDOMEN AND PELVIS EXAM DATE: 12/14/2019 02:12 PM. CLINICAL HISTORY: Constipation and nausea/vomiting History of breast cancer with known bone metastases. COMPARISONS: None. TECHNIQUE: Routine helical CT imaging was performed through the abdomen and pelvis. IV contrast: 100 mL OPTIRAY 320. Enteric contrast: No. Reconstructions: Coronal and sagittal. In accordance with CT protocol optimization, one or more of the following dose reduction techniques were utilized for this exam: automated exposure control, adjustment of mA and/or KV based on patient size, or use of iterative reconstructive technique. FINDINGS: Lung Bases: Trace bilateral pleural effusions with adjacent atelectasis in the bilateral lower lobes, including subsegmental atelectasis in the left lower lobe base. Liver: Normal. No focal hepatic lesion. Gallbladder/Bile Ducts: Unremarkable. No visualized stones or biliary ductal dilatation. Spleen: Normal. Pancreas: Normal. Adrenal Glands: Normal. Kidneys and Ureters: Normal. No stones, hydronephrosis, or hydroureter. Peritoneal Cavity/Bowel: Large stool volume from the cecum through descending colon. Colonic diverticulosis without associated focal colon wall thickening or adjacent mesenteric fat stranding to suggest acute diverticulitis. No dilated small bowel loops to suggest obstruction. The appendix is normal. No free fluid, pneumoperitoneum, or adenopathy. Pelvic Organs: Post hysterectomy and left oophorectomy. 4.9 x 3.6 cm simple appearing left ovarian cyst with a few punctate peripheral calcifications (3/67). The bladder is within normal limits. Vasculature: Unremarkable. Bones: Innumerable lytic lesions throughout the visualized skeleton, compatible with widespread osseous metastases. Multiple pathologic rib fractures. Mild to moderate multilevel degenerative disk disease and facet arthropathy in the lumbar spine, with unchanged associated grade 1 anterolisthesis at L3-L4. Other: None. IMPRESSION: 1. Diffuse osseous metastatic disease. 2. Large colonic stool volume, compatible with given history of constipation. 3. Colonic diverticulosis without CT evidence for acute diverticulitis. 4. 4.9 x 3.6 cm simple appearing left ovarian cyst. Follow-up ultrasound recommended in 6-12 months per ACR white paper. 5. Trace bilateral pleural effusions. RADIA
[2019-12-14 15:11] LABS: BILIRUBIN,URINE NEGATIVE (NEGATIVE); GLUCOSE, URINE (UA) NEGATIVE (NEGATIVE); KETONES,URINE (UA) 15 mg/dL (NEGATIVE); LEUKOCYTE ESTERASE, URINE TRACE (NEGATIVE); NITRITE,URINE NEGATIVE (NEGATIVE); OCCULT BLOOD,URINE NEGATIVE (NEGATIVE); PH,URINE 7.5 PH (5.0-7.5); PROTEIN,URINE NEGATIVE (NEGATIVE); UROBILINOGEN,URINE 0.2 (NORMAL) E.U./dL (NORMAL)
[2019-12-14 15:19] LABS: CLARITY,URINE CLEAR (CLEAR)
[2019-12-14 15:20] LABS: BACTERIA,URINE Moderate /HPF (None Seen); RBC,URINE 0-5 /HPF (0-5); SQUAMOUS EPITHELIAL CELL,UR NONE SEEN (<= Few)
[2019-12-14] MEDS ORDERED: polyethylene glycoL 3350 17 GM PACKET PO STA (15:35)
[2019-12-14 16:42] VITALS: BP 152/89
== END 2019-12-14 16:30 | disposition home or self-care (01) ==
LOC: EDUNIT# → ED 11:25
DX: K59.00 Constipation, unspecified (principal); E87.6 Hypokalemia; C79.51 Secondary malignant neoplasm of bone; Z85.3 Personal history of malignant neoplasm of breast; R11.2 Nausea with vomiting, unspecified
CPT/HCPCS: 36415; 74177; 80053; 81001; 83605; 83690; 83735; 85025; 87086; 96361; 96365; 96375; 99284; A9270; J1170; J2765; Q9967; 81003

== ENCOUNTER 2020-01-13 13:22 | Outpatient (CLI) | payer OTHER ==
[2020-01-13] MEDS ORDERED: IOVERSOL 320 100 ML VIAL IVP ONE ×2 (13:32→13:57)
--- NOTE | 2020-01-13 16:58 | CT Report ---
Reason: MAIL NEOPL OF UNSP SITE OF UNSP FEM Procedure Date: 01/13/2020 Accession Number: [id number] / [id number] Procedure: CT - CHEST W CPT Code: Final Report FULL RESULT: PROCEDURE: CHEST W INDICATIONS: MAIL NEOPL OF UNSP SITE OF UNSP FEM CONTRAST: IV CONTRAST: Optiray 320 ml: 100 PO CONTRAST: *NO PO CONTRAST TECHNIQUE: After the administration of intravenous contrast, 5 mm thick sections acquired from the pulmonary apices to the posterior costophrenic angles. 7 mm thick coronal MIP reformats were acquired. For radiation dose reduction, the following was used: automated exposure control, adjustment of mA and/or kV according to patient size. COMPARISON: Chest x-ray 07/11/2019 FINDINGS: Image quality: Excellent. Lungs and pleura: No acute air space opacities. No pleural effusions or pneumothorax. Central and peripheral airways are patent and normal in caliber. Mediastinum: Heart size is mildly prominent. No pericardial effusion. No mediastinal or hilar adenopathy by size criteria. Thoracic aorta and central pulmonary arteries are normal in size. Esophagus is normal in caliber. No hiatal hernia. Bones and chest wall: Multiple areas of sclerosis and lucency are present within the visualized axial and appendicular skeleton. There is there is an expansile appearance of the posterior left sixth rib with significant osseous destruction and underlying pathological fracture. No axillary or supraclavicular adenopathy by size criteria. Thyroid gland is unremarkable. Abdomen: Visualized upper abdominal solid organs appear normal. Upper abdominal bowel loops are normal in caliber. IMPRESSION: 1. No evidence of pulmonary metastatic disease. 2. Significant osseous and lytic lesions within the visualized axial and appendicular skeleton. In addition, there is a significantly expanded left sixth posterior rib with underlying pathologic fracture. Given the multiple areas of lucency within the visualized thoracolumbar spine with some levels of osseous erosion extending towards the spinal canal, metastatic involvement of the canal cannot be excluded. MRI with and without contrast is recommended for further evaluation. Reviewed by: Elayne Brown MD on 01/13/2020 4:57 PM PDT Approved by: Elayne Brown MD on 01/13/2020 4:57 PM PDT Station ID: [id number]
== END 2020-01-13 13:23 | disposition home or self-care (01) ==
LOC: DI 13:22
PROVIDERS: ATTEND Internal Medicine Hematology & Oncology
DX: M84.48XA Pathological fracture, other site, initial encounter for fracture (principal); M89.9 Disorder of bone, unspecified; C50.919 Malignant neoplasm of unspecified site of unspecified female breast
CPT/HCPCS: 71260; Q9967

== ENCOUNTER 2021-01-17 14:10 | Outpatient (CLI) | payer OTHER ==
--- NOTE | 2021-01-17 16:55 | CONSULTATION NOTE ---
Palliative Care Consultation - Referral Referring Provider: Dr. Vish Fernandes Time of Visit: [id number] Referral setting: Home Referral Reason: Pain of neoplastic origin/Depression/Anxiety/Met Breast CA - Information Sources Records reviewed: Previous records reviewed History/Review of Systems obtained from: Patient, Family ( Car present) Exam limitations: Clinical condition (Car's son just in accident 01/15 both distracted appropriately) - History of Present Illness Brief History of Present Illness: This is a 60-year-old woman who was originally diagnosed with right breast cancer in 2012, stage I with a lumpectomy followed by radiation. She was initially put on anastrozole, and then developed depression severe hot flashes and switched to tamoxifen. Which she completed in 07/24. Unfortunately she developed worsening back pain in August 2019, unfortunately is continued to progress, and until she presented with hypercalcemia up to 15, and found to have multiple bony mets in 12/2019. She also had a T5 pathological fracture, and a narrowing at T7. Her bone scan in 12/2019 showed multifocal areas of increased uptake bilateral ribs, pelvic bones, skull, and spines, at this point in time has not demonstrated anything more than bony mets. She did undergo radiation to the mid thoracic spine, and was started on Ibrance along with monthly Faslodex injections, she has had some leukopenia and fatigue. She recently returned from [place], and is awaiting her insurance approval on her Faslodex, and pending bone scan. Unfortunately in meeting her and her , her stepson was in a fatal accident over the weekend, they are still reeling from this. Appropriately distressed, given the patient's moderate to high symptom burden, did go forward with the evaluation and admit for palliative care. Patient's pain was improved with radiation, but continues on MS Contin 30 mg twice daily, with MSIR 15 mg for as needed pain, which she uses about 2 times a day. Her pain is mostly in the upper thoracic area radiating over to the right. She also has increasing pain in her left shoulder area with limited range of motion, this is steadily worsened over time. She does have some chronic neuropathic pain prior to her diagnosis, for which she was on gabapentin. Patient did respond well to radiation, will follow-up after bone scan if this might be a target. Patient also has worsening anxiety, she does have Paxil, recently with an increase for 40 mg. She she has noticed some improvement, but also has Xanax for breakthrough anxiety, with fluctuating use. She has long-term been treated for depression, has not had her antidepressants rotated, though it does look like she has been on venlafaxine before. She also has experienced persistent insomnia, is currently taking Restoril 30 mg at bedtime. Her biggest complaint is she sleeps sometimes until noon, she is also on fairly high dose of gabapentin 600 mg, taking this only in the evening, may benefit from transitioning to pregabalin with decreased sedation. Patient is appropriately tearful, easily engaged in conversation, does complain of some intermittent constipation, worsening fatigue, and appropriate anxiety regarding the seriousness of her illness. Medical/Surgical History - Past Medical History Cardiovascular: reports: Hypertension Respiratory: reports: None Endocrine/Autoimmune: reports: None GI: reports: Chronic constipation (related to opioids) DOCUMENT IMAGING MANAGER: reports: Breast cancer Psych: reports: Depression, Anxiety, Panic attacks MRSA Hx?: No - Past Surgical History /DOCUMENT IMAGING MANAGER: reports: section, Hysterectomy, Other (breast surgery for CA about 5 years ago and was without signs of new lesions until recently. ) - Substance History Use: Uses substance without health or social issues: Alcohol (daily) Social History - Living Situation Living arrangement: At home Living Situation: With spouse/s.o. 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 She is on Social Security disability, they have only been in the community about 5 years. They are both from [place], her father lives in [place], and they travel quite frequently prior to the pandemic. They did just return from [place], that she prefers the warm weather and has found it difficult to find community support here. They have joined a amish, and her is involved in the local hospital board. She has 2 children when in [place] and one in [place] that is going to get next month. Car has a daughter and son, and unfortunately just lost his son who lived nearby him was a big support. Family History - Family History Family History: Mother: (lung CA 9 yrs ago), Father: Alive and Well Medications/Allergies - Medications Home Medications: Ambulatory Orders Medication Instructions Recorded Confirmed PARoxetine [Paxil] 40 mg PO DAILY 01/13/20 01/17/21 Prochlorperazine [Compazine] 10 mg PO PRN PRN 01/13/20 01/17/21 Morphine Ir [Ms Ir] 15 mg PO Q6H PRN #60 tablet 02/11/20 01/17/21 Palbociclib [Ibrance] 125 mg PO DAILY 02/17/20 01/17/21 Fulvestrant [Faslodex] 500 mg IM TITR 12/16/20 01/17/21 ALPRAZolam [Alprazolam] 0.5 mg PO BID PRN 01/10/21 01/17/21 Gabapentin [Neurontin] 600 mg PO QPM 01/10/21 01/17/21 Morphine Sulfate ER [Ms Contin] 30 mg PO BID 01/10/21 01/17/21 Oxybutynin Chloride [Ditropan Xl] 5 mg PO QPM 01/10/21 01/17/21 Temazepam [Restoril] 30 mg PO QPM PRN 01/10/21 01/17/21 Aripiprazole [Abilify] 2 mg PO DAILY MDD titrating 01/17/21 01/17/21 Senna [Senokot] 1 - 2 tab PO BID PRN 01/17/21 01/17/21 polyethylene glycoL 3350 [Miralax] 8.5 gm PO DAILY 01/17/21 01/17/21 - Allergies Allergies/Adverse Reactions: Allergies Allergy/AdvReac Type Severity Reaction Status Date / Time acetaminophen [From Vicodin] AdvReac Nausea Verified 01/12/21 15:16 hydrocodone [From Vicodin] AdvReac Nausea Verified 01/12/21 15:16 Review of Systems - Constitutional Constitutional: reports: Fatigue (persistent; worse in AM), Weakness, Night sweats (less in colder weather), Weight loss (improved but still 10-15 pounds down) - Cardiovascular Cardiovascular: reports: Exertional dyspnea, Decr. exercise tolerance. denies: Palpitations, Chest pain, Edema, Syncope - Respiratory Respiratory: reports: SOB with exertion. denies: Cough, SOB at rest - Gastrointestinal Gastrointestinal: reports: Constipation (intermittent), Early satiety. denies: Reflux/heartburn - Musculoskeletal Musculoskeletal: reports: Stiffness, Limited range of motion (left shoulder), Muscle weakness, Joint pain (left shoulder pain) - Integumentary Integumentary: reports: Dryness - Neurological Neurological: reports: General weakness, Numbness (left hand/arm) - Psychiatric Psychiatric: reports: Depression, Anxiety - Endocrine Endocrine: reports: Intolerance to cold - Hematologic/Lymphatic Hematologic/Lymph: reports: Anemia. denies: Recurrent infections (12.5) - All Other Systems All Other Systems: reports: Reviewed and negative Physical Exam - Vital Signs Temperature: 97.7 C Pulse Rate: 71 Respiratory Rate: 18 O2 Saturation: 97 (ra @ rest) Blood Pressure: 110/78 - Physical Exam General Appearance: positive: Alert, Mild distress (tearful appropriately) Neck: positive: Trachea midline Cardiovascular: positive: Regular rate & rhythm Respiratory: positive: No respiratory distress, Breath sounds nml, Diminished in bases Abdomen: positive: Soft Skin: positive: Pallor Extremities: positive: No pedal edema Neurologic/Psychiatric: positive: Oriented x3, Weakness, Depressed mood/affect Palliative Care - POLST Patient has POLST: No Pain: Pain worsening (left shoulder; back better with radiation;), Comment (currently on 30 mg BID with 2 tabs for MS IR 15 mg / 24 hours) Tiredness/Fatigue: Moderate (4-6) Drowsiness/Sedation: Moderate (4-6) Nausea: None Dyspnea: Moderate (4-6) (with activity) Depression: Moderate (4-6) (worsening;) Anxiety: Moderate (4-6) (some improvement with titration of Paxil) Feelings of wellbeing/Perceived Quality of Life: Fair Sleep: Variable sleep pattern (sleeps "too late" having difficulty getting up; has tried adjusting sleep med with little results) Constipation: Yes, Opoid induced, Unmanaged Performance Status: Patient has had declining functional status she is able to manage her own ADLs. She is limited both by her pain, fatigue, and activity endurance. She does find herself sleeping more, and less active, prior to her recurrence, she had been very active. - Palliative Care Discussion: Patient and her are appropriately grieving the recent tragic loss of his son, has been her caregiver and very supportive of her through this process, she is quite anxious, and discussed how best she likes information. She does understand the seriousness of her illness, though with metastatic breast cancer to bones only, there can be more of a longer chronic nature to the journey, explained role of palliative care for symptom management and focus on quality of life issues. Patient prior even to the loss over the weekend, identi latrelles her most problematic symptom is her depression. Results - Lab Results Lab results reviewed: Yes Impression and Recommendations - Palliative Care Impression: This is a 60-year-old woman with recurrent breast cancer, with known extensive mets to the bones. She has received radiation to her thoracic spine, is currently on Ibrance, Faslodex and Xgeva. She does present with moderate to high symptom burden of pain, depression, anxiety, insomnia, constipation, and persistent fatigue. Palliative care to provide support for pain and symptom management, anticipatory guidance, and advanced care planning Recommendations/Counseling Done: 1. Pain of neoplastic origin. Patient has on MS Contin 30 mg twice daily, with MSIR 50 mg as needed. She does have escalating pain in her left shoulder, will await bone scan results regarding underlying etiology, has responded to radiation in the past if there is an active lesion, or may benefit from cortisone injection, she does have severe limited range of motion. She is also on 600 mg at night, does describe some residual hangover, originally attributed to her sleep medication, will explore with next visit considering trialing or changing out to pregabalin to decrease sedation. 2. Depression/anxiety. Patient has recently been increased on her Paxil 40 mg, with only slight improvement. She does describe persistent depressive feelings even prior to her grief with her recent loss of stepson. Discussed changing or rotating antidepressant versus adding Abilify to boost current regimen, given the complexity of her care, will trial Abilify first. Will start at 2 mg, and titrate up as indicated, with follow-up phone call next week. 3. Constipation. Patient with intermittent constipation, patient counseled on bowel program with MiraLAX and senna concentrate, written out instructions provided, verbalizes understanding. 4. Acute grief and loss. Both patient and reeling from fatal accident of her stepson this weekend. Certainly adding to the complexity of their current situation, will continue to monitor. Patient does have a counselor, encouraged follow-up. 5. Advanced care planning. Introduced role of palliative care, will continue to follow, reviewed need for pain meds going through one provider, acknowledges understanding. We will continue to work with quality of life issues, symptom management, and building rapport. 60 minutes with greater than 50% of this time in counseling regarding symptom management role of palliative care, psychosocial support and anticipatory guidance.
== END 2021-01-17 14:11 | disposition home or self-care (01) ==
LOC: PC 14:10
PROVIDERS: ATTEND Nurse Practitioner Adult Health
DX: Z51.5 Encounter for palliative care (principal); G89.3 Neoplasm related pain (acute) (chronic); M25.512 Pain in left shoulder; M54.6 Pain in thoracic spine; C50.919 Malignant neoplasm of unspecified site of unspecified female breast; C79.51 Secondary malignant neoplasm of bone; F32.9 Major depressive disorder, single episode, unspecified; K59.03 Drug induced constipation; T40.2X5A Adverse effect of other opioids, initial encounter; F43.21 Adjustment disorder with depressed mood; Z79.891 Long term (current) use of opiate analgesic
CPT/HCPCS: 99344

== ENCOUNTER 2021-01-19 13:08 | Emergency (ER) | payer OTHER, BC ==
[2021-01-19] MEDS ORDERED: SODIUM CHLORIDE 0.9% 1,000 ML IV STA (13:48)
[2021-01-19 13:53] LABS: BASOPHILS % (AUTO) 0.5 %; EOSINOPHILS % (AUTO) 3.3 %; HCT - HEMATOCRIT 34.8 % (37.0-47.0); HGB - HEMOGLOBIN 11.5 g/dL (12.0-16.0); LYMPHOCYTES % (AUTO) 57.3 %; MEAN CORPUSCULAR HEMOGLOBIN 38.1 pg (27.0-31.0); MEAN CORPUSCULAR VOLUME 115.2 fL (81.0-99.0); MEAN PLATELET VOLUME 9.3 fL (7.9-10.8); MONOCYTES % (AUTO) 7.5 %; NEUTROPHILS % (AUTO) 30.5 %; PLT - PLATELET COUNT 135 10^3/uL (130-450); RED BLOOD COUNT 3.02 10^6/uL (4.20-5.40); RED CELL DISTRIBUTION WIDTH 13.1 % (12.0-15.0); WHITE BLOOD COUNT 2.1 x10^3/uL (4.8-10.8)
--- NOTE | 2021-01-19 13:54 | ED Physician Documentation ---
History of Present Illness - Stated complaint Stated Complaint: ALTERED MENTAL STATUS - Chief complaint Chief Complaint: General - History obtained from History obtained from: Patient, Family - History of Present Illness Timing: Today Pain level max: 0 Pain level now: 0 - Additonal information Additional information: Patient is a 60-year-old female who is brought into the emergency department by her . They state that today she is exhibited increased confusion. He states that she was asking the same question over and over and could not remember asking the question. She has been having some difficulty with memory since starting Abilify 2 days ago. She has been sleeping more as well. She has a history of breast cancer with metastases to the bone. She is currently undergoing chemotherapy and recently started palliative care. No focal neurological deficits. No numbness or weakness. No facial droop. 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 ) - Present Medications Home Medications: Ambulatory Orders Medication Instructions Recorded Confirmed PARoxetine [Paxil] 40 mg PO DAILY 01/13/20 01/19/21 Prochlorperazine [Compazine] 10 mg PO PRN PRN 01/13/20 01/19/21 Morphine Ir [Ms Ir] 15 mg PO Q6H PRN #60 tablet 02/11/20 01/19/21 Palbociclib [Ibrance] 125 mg PO DAILY 02/17/20 01/19/21 Fulvestrant [Faslodex] 500 mg IM TITR 12/16/20 01/19/21 ALPRAZolam [Alprazolam] 0.5 mg PO BID PRN 01/10/21 01/19/21 Gabapentin [Neurontin] 600 mg PO QPM 01/10/21 01/19/21 Morphine Sulfate ER [Ms Contin] 30 mg PO BID 01/10/21 01/19/21 Oxybutynin Chloride [Ditropan Xl] 5 mg PO QPM 01/10/21 01/19/21 Temazepam [Restoril] 30 mg PO QPM PRN 01/10/21 01/19/21 Senna [Senokot] 1 - 2 tab PO BID PRN 01/17/21 01/19/21 polyethylene glycoL 3350 [Miralax] 8.5 gm PO DAILY 01/17/21 01/19/21 - Allergies Allergies/Adverse Reactions: Allergies Allergy/AdvReac Type Severity Reaction Status Date / Time acetaminophen [From Vicodin] AdvReac Nausea Verified 01/19/21 13:24 hydrocodone [From Vicodin] AdvReac Nausea Verified 01/19/21 13:24 - Social History Does the pt smoke?: No Smoking Status: Never smoker Does the pt drink ETOH?: Yes Does the pt have substance abuse?: No - Immunizations Immunizations are current?: Yes - POLST Patient has POLST: No PD ED PE NORMAL - Vitals Vital signs reviewed: Yes - General General: Alert and oriented X 3, No acute distress, Well developed/nourished - HEENT HEENT: PERRL, EOMI, Moist mucous membranes - Neck Neck: Supple, no meningeal sign - Cardiac Cardiac: RRR, Strong equal pulses - Respiratory Respiratory: No respiratory distress, Clear bilaterally - Abdomen Abdomen: Soft, Non tender, Non distended - Derm Derm: Warm and dry, No rash - Extremities Extremities: No edema - Neuro Neuro: Alert and oriented X 3, 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, No motor deficit, No sensory deficit, Normal speech Eye Opening: Spontaneous Motor: Obeys Commands Verbal: Oriented GCS Score: 15 - Psych Psych: Normal mood, Normal affect Results - Vitals Vitals: Vital Signs - 24 hr 01/19/21 01/19/21 01/19/21 13:20 15:24 16:16 Temperature 36.3 C L 36.1 C L Heart Rate 72 66 72 Respiratory 16 19 16 Rate Blood Pressure 130/78 150/80 H 97/55 L O2 Saturation 93 98 94 Oxygen O2 Source Room air - Labs Labs: Laboratory Tests 01/19/21 01/19/21 01/19/21 13:40 13:40 14:37 WBC 2.1 L RBC 3.02 L Hgb 11.5 L Hct 34.8 L MCV 115.2 H MCH 38.1 H MCHC 33.0 RDW 13.1 Plt Count 135 MPV 9.3 Neut # (Auto) Not Reportable Lymph # (Auto) Not Reportable [place] # (Auto) Not Reportable Eos # (Auto) Not Reportable Baso # (Auto) Not Reportable Absolute Nucleated RBC Not Reportable Total Counted 100 Band Neuts % (Manual) 0 Abnorm Lymph % (Manual) 0 Nucleated RBC % Not Reportable Neutrophils # (Manual) 0.5 L* Lymphocytes # (Manual) 1.4 L Monocytes # (Manual) 0.0 Eosinophils # (Manual) 0.1 Basophils # (Manual) 0.0 Nucleated RBCs 1 Differential Comment MANUAL DIFFERENTIAL Platelet Estimate NORMAL (130-450,000) Platelet Morphology NORMAL APPEARANCE RBC Morph Micro Appear 1+ STOMATOCYTES VBG pH 7.307 L Ionized Calcium 1.14 L Sodium 137 Potassium 3.9 Chloride 100 L Carbon Dioxide 27 Anion Gap 10.0 BUN 12 Creatinine 0.7 Estimated GFR (MDRD) 85 L Glucose 110 H Calcium 8.9 Phosphorus 4.2 Magnesium 2.3 Total Bilirubin 0.5 AST 23 ALT 14 Alkaline Phosphatase 56 Total Protein 6.9 Albumin 4.2 Globulin 2.7 Albumin/Globulin Ratio 1.6 Lipase 20 L Urine Color Urine Clarity Urine pH Ur Specific [place] Urine Protein Urine Glucose (UA) Urine Ketones Urine Occult Blood Urine Nitrite Urine Bilirubin Urine Urobilinogen Ur Leukocyte Esterase Ur Microscopic Review Urine Culture Comments Salicylates < 6.0 Acetaminophen < 10 L Ethyl Alcohol < 5.0 01/19/21 15:10 WBC RBC Hgb Hct MCV MCH MCHC RDW Plt Count MPV Neut # (Auto) Lymph # (Auto) [place] # (Auto) Eos # (Auto) Baso # (Auto) Absolute Nucleated RBC Total Counted Band Neuts % (Manual) Abnorm Lymph % (Manual) Nucleated RBC % Neutrophils # (Manual) Lymphocytes # (Manual) Monocytes # (Manual) Eosinophils # (Manual) Basophils # (Manual) Nucleated RBCs Differential Comment Platelet Estimate Platelet Morphology RBC Morph Micro Appear VBG pH Ionized Calcium Sodium Potassium Chloride Carbon Dioxide Anion Gap BUN Creatinine Estimated GFR (MDRD) Glucose Calcium Phosphorus Magnesium Total Bilirubin AST ALT Alkaline Phosphatase Total Protein Albumin Globulin Albumin/Globulin Ratio Lipase Urine Color YELLOW Urine Clarity CLEAR Urine pH 5.5 Ur Specific [place] 1.010 Urine Protein NEGATIVE Urine Glucose (UA) NEGATIVE Urine Ketones NEGATIVE Urine Occult Blood NEGATIVE Urine Nitrite NEGATIVE Urine Bilirubin NEGATIVE Urine Urobilinogen 0.2 (NORMAL) Ur Leukocyte Esterase NEGATIVE Ur Microscopic Review NOT INDICATED Urine Culture Comments NOT INDICATED Salicylates Acetaminophen Ethyl Alcohol - Rads (name of study) Ct angio head Radiology: Prelim report reviewed, EMP read contemporaneously, See rad report (No acute abnormality) CT angio neck Radiology: Prelim report reviewed, EMP read contemporaneously, See rad report (No acute abnormality) PD MEDICAL DECISION MAKING - ED course Complexity details: reviewed results, re-evaluated patient, considered differential, d/w patient, d/w family ED course: No acute findings on CT scan or lab work. Likely that the change in mental status is related to recently starting Abilify. Could also be an episode of transient global amnesia. She appears to be currently at her baseline. We will stop the Abilify as she has only been on this 2 days. We will have her follow- up with her doctor for further care. NIH stroke scale of 0. Patient counseled regarding signs and symptoms for which I believe and urgent re-evaluation would be necessary. Patient with good understanding of and agreement to plan and is comfortable going home at this time This document was made in part using voice recognition software. While efforts are made to proofread this document, sound alike and grammatical errors may occur. Departure - Departure Disposition: 01 Home, Self Care Clinical Impression: Altered mental status Qualifiers: Altered mental status type: unspecified Qualified Code(s): R41.82 - Altered mental status, unspecified Condition: Good Instructions: ED Altered Loc Follow-Up: Gillian Whitehead DO [Primary Care Provider] - Within 1 week Comments: As we discussed, I would stop the Abilify. Follow-up with your doctor for further care. Return if you worsen. Discharge Date/Time: 01/19/21 16:16 NIHSS - Time Time: 13:40 - Level of Consciousness Level of consciousness: (0) Alert, Keenly responsive LOC Questions: (0) Answers both Q's correct LOC Commands: (0) Performs both correctly - Gaze Best Gaze: (0) Normal - Visual Visual: (0) No loss - Facial Palsy Facial Palsy: (0) Normal, symmetrical movement - Motor Arms (both separate) Motor Arm (right): (0) No drift Motor Arm (left): (0) No drift - Motor Legs (both separate) Motor Leg (right): (0) No drift Motor Leg (left): (0) No drift - Limb Ataxia Limb Ataxia: (0) Absent - Sensory Sensory: (0) Normal - Best Language Best Language: (0) No aphasia - Dysarthria Dysarthria: (0) Normal - Extinction and Inattention (formally neg Extinction and inattention: (0) No abnormality - Total Score/Results Total Score/Result: 0
[2021-01-19 13:55] LABS: ABNORMAL LYMPHS % (MANUAL) 0 %; BAND NEUTROPHILS % (MANUAL) 0 %
[2021-01-19 14:05] LABS: ACETAMINOPHEN < 10 ug/mL (10-30); ALBUMIN 4.2 g/dL (3.2-5.5); ALBUMIN/GLOBULIN RATIO 1.6 (1.0-2.2); ALKALINE PHOSPHATASE 56 IU/L (42-121); ALT ALANINE AMINOTRANSFERASE 14 IU/L (10-60); AST ASPARTATE AMINOTRANSFERASE 23 IU/L (10-42); BILIRUBIN,TOTAL 0.5 mg/dL (0.2-1.0); BUN - BLOOD UREA NITROGEN 12 mg/dL (6-20); CALCIUM 8.9 mg/dL (8.5-10.3); CARBON DIOXIDE - CO2 27 mmol/L (21-32); CHLORIDE 100 mmol/L (101-111); CREATININE 0.7 mg/dL (0.4-1.0); ETOH - ETHANOL < 5.0 mg/dL; GFR - MDRD 85 (>89); GLUCOSE 110 mg/dL (70-100); LIPASE 20 U/L (22-51); MAGNESIUM 2.3 mg/dL (1.7-2.8); PHOSPHORUS 4.2 mg/dL (2.5-4.6); POTASSIUM 3.9 mmol/L (3.5-5.0); SALICYLATE < 6.0 mg/dL; SODIUM 137 mmol/L (135-145); TOTAL PROTEIN 6.9 g/dL (6.7-8.2)
[2021-01-19 14:12] LABS: DIFFERENTIAL COMMENT MANUAL DIFFERENTIAL; EOSINOPHILS # (MANUAL) 0.1 10^3/uL (0-0.7); LYMPHOCYTES # (MANUAL) 1.4 10^3/uL (1.5-3.5); LYMPHOCYTES % (MANUAL) 69 %; NEUTROPHILS # (MANUAL) 0.5 10^3/uL (1.5-6.6); NUCLEATED RBC (MANUAL) 1 %
[2021-01-19 14:13] LABS: PLATELET ESTIMATE, MANUAL NORMAL (130-450,000) (NORMAL); PLATELET MORPHOLOGY NORMAL APPEARANCE (NORMAL)
[2021-01-19] MEDS ORDERED: IOVERSOL 320 100 ML VIAL IVP ONE ×2 (14:16→15:24)
[2021-01-19 14:43] LABS: CALCIUM, IONIZED 1.14 mmol/L (1.15-1.33); VBG PH 7.307 (7.31-7.41)
[2021-01-19 15:20] LABS: BILIRUBIN,URINE NEGATIVE (NEGATIVE); GLUCOSE, URINE (UA) NEGATIVE (NEGATIVE); KETONES,URINE (UA) NEGATIVE (NEGATIVE); LEUKOCYTE ESTERASE, URINE NEGATIVE (NEGATIVE); NITRITE,URINE NEGATIVE (NEGATIVE); OCCULT BLOOD,URINE NEGATIVE (NEGATIVE); PH,URINE 5.5 PH (5.0-7.5); PROTEIN,URINE NEGATIVE (NEGATIVE); UROBILINOGEN,URINE 0.2 (NORMAL) E.U./dL (NORMAL)
[2021-01-19 15:21] LABS: CLARITY,URINE CLEAR (CLEAR)
--- NOTE | 2021-01-19 15:29 | CT Report ---
PROCEDURE: ANGIO HEAD W/WO INDICATIONS: altered mental status today CONTRAST: IV CONTRAST: Optiray 320 ml: 80 PO CONTRAST: *NO PO CONTRAST TECHNIQUE: Precontrast 4.5 mm thick angled axial sections acquired from the foramen magnum to the vertex. Afte r the administration of intravenous contrast, 1 mm thick sections acquired through the [place] of [place] is. Postcontrast 4.5 mm thick sections then re-acquired from the foramen magnum to the vertex. 3-di mensional [id number] (MIP) and/or volume rendering reformats were acquired of the c entral intracranial vasculature. For radiation dose reduction, the following was used: automated ex posure control, adjustment of mA and/or kV according to patient size. COMPARISON: CTA neck 01/19/2021 FINDINGS: Image quality: Excellent. Anterior circulation: Intracranial internal carotid arteries are normal in size and flow. The flow within the paired anterior cerebral arteries is normal and symmetric. The flow within the middle cer ebral arteries is normal and symmetric. The anterior communicating artery is seen. No aneurysms are seen. Posterior circulation: The posterior circulation demonstrates a left vertebral artery dominance. Rig ht vertebral artery ends in PICA. Basilar artery and posterior cerebral arteries demonstrate no area s of hemodynamically significant stenosis, vascular occlusion or aneurysmal dilation. Posterior commu nicating arteries are within normal limits. CSF spaces: Ventricles are normal in size and shape. Basal cisterns are patent. No extra-axial flu id collections. Brain: No midline shift. No intracranial bleeds or masses. Sampson-white matter interface appears int act. Skull and face: Calvarium and facial bones appear intact, without suspicious lesions. Sinuses: Visualized sinuses and mastoids are clear. IMPRESSION: 1. No acute intracranial process. 2. No areas of hemodynamically significant stenosis, vascular occlusion or aneurysmal dilation within the anterior circulation. 3. No areas of hemodynamically significant stenosis, vascular occlusion or aneurysmal dilation within the posterior circulation. Reviewed by: Elayne Brown MD on 01/19/2021 3:28 PM PDT Approved by: Elayne Brown MD on 01/19/2021 3:28 PM PDT Station ID: [id number]
--- NOTE | 2021-01-19 15:56 | CT Report ---
PROCEDURE: ANGIO NECK W INDICATIONS: altered mental status today CONTRAST: IV CONTRAST: Optiray 320 ml: 80 PO CONTRAST: *NO PO CONTRAST TECHNIQUE: After the administration of intravenous contrast, 1.5 mm axial sections acquired from the aortic arch to the [place] of [place]. Coronal 3-D maximum intensity projection (MIP) and/or volume rendering ref ormats were then performed. For radiation dose reduction, the following was used: automated exposur e control, adjustment of mA and/or kV according to patient size. COMPARISON: CT head 01/19/2021. FINDINGS: Image quality: Excellent. The origins of the left and right common, internal and external carotid a rteries demonstrate no areas of hemodynamically significant stenosis, vascular occlusion or aneurysma l dilation. Origin of the left vertebral artery and right vertebral artery demonstrate no areas of he modynamically significant stenosis, vascular occlusion or aneurysmal dilation. 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 Limited, visualized portions of the subclavian vasculature are u nremarkable. IMPRESSION: 1. There are no areas of hemodynamically significant stenosis, vascular occlusion or aneurysmal dilat ion within the neck vasculature. The estimate of stenosis included in the report of the imaging study was calculated using the NASCET method Reviewed by: Elayne Brown MD on 01/19/2021 3:55 PM PDT Approved by: Elayne Brown MD on 01/19/2021 3:55 PM PDT Station ID: [id number]
[2021-01-19 16:18] VITALS: BP 97/55
== END 2021-01-19 16:16 | disposition home or self-care (01) ==
LOC: ED 13:08
DX: R41.82 Altered mental status, unspecified (principal); C50.919 Malignant neoplasm of unspecified site of unspecified female breast; C79.51 Secondary malignant neoplasm of bone; I10 Essential (primary) hypertension
CPT/HCPCS: 36415; 70496; 70498; 80053; 80307; 80320; 80329; 81003; 82330; 83690; 83735; 84100; 85025; 99284; Q9967; 81001; 87086

== ENCOUNTER 2021-01-28 09:59 | Outpatient (CLI) | payer OTHER ==
[2021-01-28 10:15] LABS: BASOPHILS % (AUTO) 1.3 %; EOSINOPHILS % (AUTO) 1.3 %; HCT - HEMATOCRIT 36.2 % (37.0-47.0); LYMPHOCYTES % (AUTO) 62.6 %; MEAN CORPUSCULAR HEMOGLOBIN 37.7 pg (27.0-31.0); MEAN CORPUSCULAR HGB CONC 33.1 g/dL (32.0-36.0); MEAN CORPUSCULAR VOLUME 113.8 fL (81.0-99.0); MEAN PLATELET VOLUME 9.7 fL (7.9-10.8); MONOCYTES % (AUTO) 9.7 %; NEUTROPHILS % (AUTO) 25.1 %; PLT - PLATELET COUNT 119 10^3/uL (130-450); RED BLOOD COUNT 3.18 10^6/uL (4.20-5.40); RED CELL DISTRIBUTION WIDTH 13.4 % (12.0-15.0); WHITE BLOOD COUNT 2.4 x10^3/uL (4.8-10.8)
[2021-01-28 10:21] LABS: ABNORMAL LYMPHS % (MANUAL) 0 %
[2021-01-28 10:49] LABS: BAND NEUTROPHILS % (MANUAL) 2 %; BASOPHILS % (MANUAL) 1 %; LYMPHOCYTES # (MANUAL) 1.2 10^3/uL (1.5-3.5); LYMPHOCYTES % (MANUAL) 51 %; MONOCYTES # (MANUAL) 0.2 10^3/uL (0.0-1.0); NEUTROPHILS # (MANUAL) 0.9 10^3/uL (1.5-6.6)
[2021-01-28 10:50] LABS: DIFFERENTIAL COMMENT MANUAL DIFFERENTIAL; PLATELET ESTIMATE, MANUAL DECREASED (<130,000) (NORMAL); PLATELET MORPHOLOGY NORMAL APPEARANCE (NORMAL); RBC MORPHOLOGY (MULTIPLE) 1+ MACROCYTOSIS (NORMAL); WBC MORPHOLOGY (MULTIPLE) NORMAL APPEARANCE (NORMAL)
== END 2021-01-28 10:00 | disposition home or self-care (01) ==
LOC: LAB 09:59
PROVIDERS: ATTEND Nurse Practitioner Adult Health
DX: C50.919 Malignant neoplasm of unspecified site of unspecified female breast (principal)
CPT/HCPCS: 36415; 85025

== ENCOUNTER 2021-02-03 11:15 | Outpatient (CLI) | payer OTHER ==
[2021-02-03 11:34] LABS: EOSINOPHILS % (AUTO) 0.4 %; HCT - HEMATOCRIT 37.4 % (37.0-47.0); HGB - HEMOGLOBIN 12.7 g/dL (12.0-16.0); LYMPHOCYTES % (AUTO) 51.4 %; MEAN CORPUSCULAR HEMOGLOBIN 37.9 pg (27.0-31.0); MEAN CORPUSCULAR VOLUME 111.6 fL (81.0-99.0); MEAN PLATELET VOLUME 9.2 fL (7.9-10.8); MONOCYTES % (AUTO) 17.1 %; NEUTROPHILS % (AUTO) 28.7 %; PLT - PLATELET COUNT 152 10^3/uL (130-450); RED BLOOD COUNT 3.35 10^6/uL (4.20-5.40); WHITE BLOOD COUNT 2.5 x10^3/uL (4.8-10.8)
[2021-02-03 11:39] LABS: SLIDE REVIEW? Indicated
[2021-02-03 11:43] LABS: CALCIUM 8.9 mg/dL (8.5-10.3); CREATININE 0.7 mg/dL (0.4-1.0); POTASSIUM 4.2 mmol/L (3.5-5.0)
[2021-02-03 12:58] LABS: ABNORMAL LYMPHS % (MANUAL) 0 %
[2021-02-03 12:59] LABS: BAND NEUTROPHILS % (MANUAL) 2 %; BASOPHILS # (MANUAL) 0.1 10^3/uL (0-0.1); BASOPHILS % (MANUAL) 3 %; DIFFERENTIAL COMMENT MANUAL DIFFERENTIAL; EOSINOPHILS # (MANUAL) 0.1 10^3/uL (0-0.7); LYMPHOCYTES # (MANUAL) 1.2 10^3/uL (1.5-3.5); LYMPHOCYTES % (MANUAL) 47 %; MONOCYTES # (MANUAL) 0.4 10^3/uL (0.0-1.0); NEUTROPHILS # (MANUAL) 0.8 10^3/uL (1.5-6.6); PLATELET ESTIMATE, MANUAL NORMAL (130-450,000) (NORMAL); PLATELET MORPHOLOGY NORMAL APPEARANCE (NORMAL)
== END 2021-02-03 11:16 | disposition home or self-care (01) ==
LOC: LAB 11:15
PROVIDERS: ATTEND Nurse Practitioner Adult Health
DX: C50.919 Malignant neoplasm of unspecified site of unspecified female breast (principal); Z79.899 Other long term (current) drug therapy
CPT/HCPCS: 36415; 80048; 85025

== ENCOUNTER 2021-02-10 08:49 | Outpatient (CLI) | payer OTHER ==
[2021-02-10 09:32] LABS: BASOPHILS % (AUTO) 1.7 %; EOSINOPHILS % (AUTO) 1.7 %; HCT - HEMATOCRIT 40.9 % (37.0-47.0); HGB - HEMOGLOBIN 13.6 g/dL (12.0-16.0); LYMPHOCYTES # (AUTO) 0.8 10^3/uL (1.5-3.5); LYMPHOCYTES % (AUTO) 36.5 %; MEAN CORPUSCULAR HEMOGLOBIN 38.3 pg (27.0-31.0); MEAN CORPUSCULAR HGB CONC 33.3 g/dL (32.0-36.0); MEAN CORPUSCULAR VOLUME 115.2 fL (81.0-99.0); MEAN PLATELET VOLUME 9.5 fL (7.9-10.8); MONOCYTES # (AUTO) 0.4 10^3/uL (0.0-1.0); MONOCYTES % (AUTO) 16.5 %; NEUTROPHILS % (AUTO) 42.3 %; NRBC ABSOLUTE COUNT (AUTO) 0.04 x10^3/uL; NUCLEATED RED BLOOD CELLS AUTO 1.7 /100WBC; PLT - PLATELET COUNT 161 10^3/uL (130-450); RED BLOOD COUNT 3.55 10^6/uL (4.20-5.40); RED CELL DISTRIBUTION WIDTH 13.4 % (12.0-15.0); WHITE BLOOD COUNT 2.3 x10^3/uL (4.8-10.8)
[2021-02-10 09:34] LABS: SLIDE REVIEW? Indicated
[2021-02-10 10:08] LABS: PLATELET ESTIMATE, MANUAL NORMAL (130-450,000) (NORMAL); PLATELET MORPHOLOGY NORMAL APPEARANCE (NORMAL); RBC MORPHOLOGY (MULTIPLE) 1+ MACROCYTOSIS (NORMAL); WBC MORPHOLOGY (MULTIPLE) NORMAL APPEARANCE (NORMAL)
--- NOTE | 2021-02-11 09:28 | Nuclear Medicine Report ---
PROCEDURE: Bone Whole Body INDICATIONS: BREAST CA PAIN IN LEFT HAND RADIOPHARMACEUTICAL: mCi Tc-99m MDP IV. TECHNIQUE: Delayed whole-body scintigrams were obtained approximately 3-4 hours after intravenous injection of r adiotracer. Anterior and posterior views were acquired from vertex to feet. Additional left and rig ht oblique views of the skull and cervical spine were obtained. COMPARISON: CT chest with contrast, 01/13/2020. CT abdomen and pelvis with contrast, 12/14/2019. FINDINGS: There is heterogeneous uptake in skull consistent with metastasis. Multiple foci of abnorm al uptake are present in cervical, thoracic and lumbar spine, sacrum, sternum, multiple ribs bilatera lly, bony pelvis bilaterally, scapulae bilaterally, proximal humeri bilaterally and proximal femurs b ilaterally, consistent with osseous metastases. Intense uptake in the right wrist consistent with foc al infiltration at injection site. Increased uptake at the base of the left thumb is noted, consisten t with degenerative joint disease. IMPRESSION: 1. Widespread osseous metastatic disease as described. 2. Increased uptake at the base of the left thumb is compatible with degenerative joint disease. Dio mmend radiographic correlation. Reviewed by: Faye Olsen MD on 02/11/2021 9:26 AM PDT Approved by: Faye Olsen MD on 02/11/2021 9:26 AM PDT Station ID: [id number]
== END 2021-02-10 08:50 | disposition home or self-care (01) ==
LOC: DI 08:49
PROVIDERS: ATTEND Internal Medicine Hematology & Oncology
DX: C50.911 Malignant neoplasm of unspecified site of right female breast (principal); C79.51 Secondary malignant neoplasm of bone
CPT/HCPCS: 36415; 78306; 85025

== ENCOUNTER 2021-02-11 10:59 | Outpatient (CLI) | payer OTHER ==
--- NOTE | 2021-02-11 13:26 | CONSULTATION NOTE ---
Palliative Care Follow Up - Referral Referring Provider: Dr. Vish Fernandes Time of Visit: 1100 60 minutes [place] [facility] [place] Reason: Pain of neoplastic origin/Depression/Met Breast CA - Information Sources Records reviewed: Previous records reviewed History/Review of Systems obtained from: Patient, Family ( Car) Exam limitations: No limitations - History of Present Illness Update Brief HPI Update: ,This is a 60-year-old woman who was originally diagnosed with right breast cancer in 2012, stage I with lumpectomy followed by radiation. She was initially put on anastrozole and then developed severe depression and hot flashes and switched to tamoxifen. She completed this in 07/2019. Unfortunately she developed worsening back pain August 2019, is continued to present, as well as presented with hypercalcemia and found to have multiple bony mets 12/2019. She has had T5 pathological fracture as well as her bone scan in 12/2019 showed multifocal areas of increased uptake in her ribs, pelvic bones, skull, and spine at that point time did not show any other visceral findings. She did undergo radiation to the mid thoracic spine and was started on Ibrance along with monthly Faslodex injections, has had some persistent leukemia and fatigue. She did receive care down in [place], and has recently come back. Unfortunately getting her back in has been somewhat fragmented as far as coordinating care. I did see her for symptom management. Patient does have fairly significant pain of a 6/10, mostly located as far as functional and pain levels in her right humeral area, with limited range of motion, and actually palpated area of concern in the forward right deltoid area. She does have persistent pain in her back, which increases with sitting, or activity. She also has increased pain at night particular if she lays on that right side, as well as bilateral pain. In the meantime she has had another bone scan, which does show increased multiple foci again in the cervical, thoracic, lumbar spine, sacrum sternum and multiple ribs, bony pelvis bilaterally scapula bilaterally what is new to her understanding is proximal humeri bilaterally and proximal femurs bilateral. She did have a bone scan in July in [place], they will get a copy of this scan to be able to compare it further. The other persistent factor has been her depression, unfortunately her stepson had met with a fatal accident, over this last week that had the , and houseful of company. I had initiated Abilify to support her as far as her long- term Paxil, she did end up with episode of confusion shortly after and in the hospital on 01/19, but later we did reinitiate Abilify at bedtime and she was able to tolerate this. I suspect it was a combination of dehydration, the new medication, as well as grief response. Her brain scan at that point in time is negative, but it did in her work-up show neutrophil count of 0.5, and she was due to start her Ibrance. This was held, repeat labs in 01/28 0.9 did still not meet the threshold, repeat labs on 02/03 0.8, is held another week, yesterday her ANC was 1.0 she will start her Ibrance at 125 mg today, this was confirmed with her oncologist Dr. Hicks. Patient's pain is currently managed on MS extended release twice daily, with MS immediate release 15 mg every 4-6 hours as needed, and gabapentin 300 mg as needed at bedtime. She is satisfied with her current regimen, but would benefit from improved pain relief in that left shoulder, as it is quite painful and impaired functionally because of the pain. Will reach out to oncology, patient would most likely benefit if appropriate from radiation. She did get relief with her radiation to her back pain. She has seen Dr. Sims at [place] prior. Past Medical History: Hypertension, breast cancer, depression, anxiety, panic attacks, s/p section, hysterectomy, lumpectomy. Social History - Living Situation Living arrangement: At home Living Situation: With spouse/s.o. Medications/Allergies - Medications Home Medications: Ambulatory Orders Medication Instructions Recorded Confirmed PARoxetine [Paxil] 40 mg PO DAILY 01/13/20 01/19/21 Prochlorperazine [Compazine] 10 mg PO PRN PRN 01/13/20 01/19/21 Morphine Ir [Ms Ir] 15 mg PO Q6H PRN #60 tablet 02/11/20 01/19/21 Palbociclib [Ibrance] 125 mg PO DAILY 02/17/20 01/19/21 Fulvestrant [Faslodex] 500 mg IM TITR 12/16/20 01/19/21 ALPRAZolam [Alprazolam] 0.5 mg PO BID PRN 01/10/21 01/19/21 Gabapentin [Neurontin] 600 mg PO QPM 01/10/21 01/19/21 Morphine Sulfate ER [Ms Contin] 30 mg PO BID 01/10/21 01/19/21 Oxybutynin Chloride [Ditropan Xl] 5 mg PO QPM 01/10/21 01/19/21 Temazepam [Restoril] 30 mg PO QPM PRN 01/10/21 01/19/21 Senna [Senokot] 1 - 2 tab PO BID PRN 01/17/21 01/19/21 polyethylene glycoL 3350 [Miralax] 8.5 gm PO DAILY 01/17/21 01/19/21 - Allergies Allergies/Adverse Reactions: Allergies Allergy/AdvReac Type Severity Reaction Status Date / Time acetaminophen [From Vicodin] AdvReac Nausea Verified 01/19/21 13:24 hydrocodone [From Vicodin] AdvReac Nausea Verified 01/19/21 13:24 Review of Systems - Constitutional Constitutional: reports: Fatigue (persistent; still worse in AM), Weakness, Night sweats (less in colder weather) - Ears, Nose & Throat Ears, Nose & Throat: reports: Dry mouth - Cardiovascular Cardiovascular: reports: Exertional dyspnea, Decr. exercise tolerance. denies: Palpitations, Chest pain, Edema, Syncope - Respiratory Respiratory: reports: SOB with exertion. denies: Cough, SOB at rest - Gastrointestinal Gastrointestinal: reports: Early satiety. denies: Constipation (managing better), Reflux/heartburn - Musculoskeletal Musculoskeletal: reports: Stiffness, Limited range of motion (left arm worsening), Muscle weakness, Joint pain (left shoulder pain; limited mobility) - Integumentary Integumentary: reports: Dryness - Neurological Neurological: reports: General weakness, Numbness (left hand/arm) - Psychiatric Psychiatric: reports: Depression (mild improvement even with grief reaction), Anxiety - Endocrine Endocrine: reports: Intolerance to cold - Hematologic/Lymphatic Hematologic/Lymph: denies: Anemia (13.6) - All Other Systems All Other Systems: reports: Reviewed and negative Physical Exam - Vital Signs Pulse Rate: 76 Respiratory Rate: 18 Blood Pressure: 134/87 - Physical Exam General Appearance: positive: No acute distress, Alert Eyes Bilateral: positive: Normal inspection ENT: positive: Oral lesions (has oral candidiasis) Neck: positive: Trachea midline Cardiovascular: positive: Regular rate & rhythm Respiratory: positive: No respiratory distress, Breath sounds nml, Diminished in bases Abdomen: positive: Non-tender, Soft Skin: positive: Pallor, Dryness Extremities: positive: No pedal edema Neurologic/Psychiatric: positive: Oriented x3, Weakness, Depressed mood/affect Palliative Care - POLST Patient has POLST: No Pain: Location (left shoulder the worst 6/10), Comment (see HPI) Tiredness/Fatigue: Severe (7-10) Drowsiness/Sedation: Moderate (4-6) Nausea: Mild (1-3) Anorexia: Mild (1-3) Dyspnea: Mild (1-3) Depression: Moderate (4-6) Anxiety: Moderate (4-6) Feelings of wellbeing/Perceived Quality of Life: Fair Sleep: Sleeps poorly (last night), Variable sleep pattern Constipation: Yes, Opoid induced, Intermittent constipation Performance Status: Patient presents with fluctuating levels of activity tolerance, mostly is limited by fatigue and functionally by her left arm pain and lack of range of motion. She is able to manage her own ADLs, her does most of the transportation. They are getting ready for pending wedding, she is hoping to be able to tolerate prolonged activity, they are planning on flying. - Palliative Care Discussion: Patient understands the seriousness of her illness, she would like to spend her time meeting her goals of travel, spending time with friends and family, would like to focus on quality of life issues, has not been given any will hard numbers regarding prognosis. She is going forward to her son's wedding this weekend, but mixed with the grief of the recent of her stepson. She does feel like her mood was elevated some, and that she is coping well. Continues to have good support from her community and her . Results - Lab Results Lab results reviewed: Yes Lab and Imaging Results: WBC 2.3,Hemoglobin 13.6, hematocrit 40.9, neutrophils 1.0, lymphs 0.8 01/08 0.5 01/28 0.9 02/03 0.8 Patient with bone scan on 02/11, findings with heterogeneous uptake skull consistent with mets, multi foci in the cervical, thoracic, lumbar spine, sacrum sternum multiple ribs bilaterally, bony pelvis bilaterally scapula bilaterally proximal humeri bilaterally and proximal femurs bilaterally consistent with osteomets. Intense uptake in right wrist noted with focal infiltration at injection site as well as left thumb consistent with DJD. and patient report the humeri and femurs are new, they will bring in scan she had in July 2020 Impression and Recommendations - Palliative Care Impression: This is a briana 60-year-old woman with recurrent breast cancer, with known extensive mets to the bones, now most likely with new lesion in her humeri and femur. She has received radiation to her thoracic spine in the past, she is currently on Ibrance, Faslodex and Xgeva. She has been on hold related to neutropenia with the Ibrance for three weeks, she will restart this today per oncology threshold met of neutrophil count 1.0. Patient's pain is most persistent in her left area of the humeri, will follow up with oncology if possible radiation referral sooner than pending appointment. Patient satisfied with current pain regimen, did get relief last time though with radiation from the spine, saw Dr. Gil. Palliative care continue to follow for pain and symptom management and psychosocial support as well as anticipatory guidance Recommendations/Counseling Done: 1. Pain of neoplastic origin. Patient has MS Contin 30 mg twice daily, with MSIR 15 mg as needed for breakthrough, she does use 3-4 in 24 hours, with increased activity and standing, has used a few more over the last week. She does have escalating pain with limitation of range of motion of her left shoulder, it does appear could be related to her metastatic disease in her humeri. Will follow up with oncology regarding referral to Dr. Gil. She has cut back on the gabapentin 300 mg at bedtime to assist with "hangover", has mostly not been using it except for as as needed. 2. Constipation. She is using her bowel program with good results, 3. Patient complaining of dry mouth, on examination patient does have oral candidiasis, will go ahead and order nystatin 5 mils 4 times daily, for 10 days. 4. Depression/anxiety. She does feel the Abilify now at a full 2 mg at bedtime, has helped boost some of her mood elevation of her Paxil, will continue. She feels like she is coping fairly well, given all that is going on. 5. Insomnia. This does fluctuate, will continue work with her temazepam, and intermittent Xanax as she has had some increase in anxiety given again acute grief and loss as well as pending traveling. 6. Advanced care planning. We will continue to develop rapport with palliative care, work with quality of life issues symptom management, and explore priorities and goals for care. 7. Metastatic breast cancer, patient does meet the threshold at this point in time to restart the Ibrance, she has been off for 3 weeks. Threshold was 1.0, this was confirmed with oncology, she will restart at 125 mg daily. She is due not to see the oncologist until 03/22. 60 minutes with review of labs, imaging, communication with oncology team, counseling regarding symptom management and anticipatory guidance, and [id number] examination.
== END 2021-02-11 11:00 | disposition home or self-care (01) ==
LOC: PC 10:59
PROVIDERS: ATTEND Nurse Practitioner Adult Health
DX: Z51.5 Encounter for palliative care (principal); G89.3 Neoplasm related pain (acute) (chronic); C50.919 Malignant neoplasm of unspecified site of unspecified female breast; M25.512 Pain in left shoulder; C79.51 Secondary malignant neoplasm of bone; K59.00 Constipation, unspecified; B37.0 Candidal stomatitis; F32.9 Major depressive disorder, single episode, unspecified; G47.00 Insomnia, unspecified; Z79.899 Other long term (current) drug therapy
CPT/HCPCS: 99215; 99417

== ENCOUNTER 2021-03-02 14:00 | Outpatient (CLI) | payer OTHER ==
--- NOTE | 2021-03-02 16:41 | CONSULTATION NOTE ---
Palliative Care Follow Up - Referral Referring Provider: Dr. Shannon Hicks Time of Visit: 1400 60 minutes Referral setting: [facility] [place] Referral Reason: Pain of neoplastic origin/Met Breast CA/Fatigue - Information Sources Records reviewed: Previous records reviewed History/Review of Systems obtained from: Patient, Family ( Car) Exam limitations: No limitations - History of Present Illness Update Brief HPI Update: This is a 60-year-old woman with metastatic breast cancer to the bones. She is currently on Ibrance, just finishing her current cycle, notes significant fatigue of 8 out of 10 when she completes. She reports it takes about a week for her to recover. This is been a fairly consistent pattern for her. She does present today with still remnants of a viral infection, she had gone to her son's wedding last weekend, and developed a scratchy throat and cough, but feels it is mostly sinus and is resolving at this point. Patient does not present with any acute signs or symptoms of bacterial infection. Patient did meet with oncology, will continue with Ibrance, discussion regarding weighing benefits and burdens of radiation, concerned regarding bone marrow suppression. Pain at this point in time is controlled, though is worsening in left shoulder. She also has neuropathic pain from ulnar nerve compression, as well as history of carpal tunnel with sharp shooting pains. She had discontinued the gabapentin, she felt it was not really helping and also causing hangover, she had to use it intermittently. We discussed it is medication need to take on a regular basis and introduced trialing pregabalin today for better control and to supplement her morphine dosing. Patient's opioid dosing is 30 mg twice daily with breakthrough immediate release MS 15 mg, uses 2-4 depending on her activity level. Patient status bone scan showed extensive thoracic/lumbar mets including T5 pathologic fracture where she does describe a band of discomfort, this may also be helped by the pregabalin, multiple rib lesions including left posterior rib with underlying pathologic fracture. Patient also describes ongoing persistent generalized anxiety disorder, with a history of panic attacks. She feels she is currently managed on her regimen, this is been a long-term issue for her exacerbated by her current situation with the loss of her stepson, and diagnosis of metastatic breast cancer. She does have good support, we did discuss though in response to her question about support groups, online support group [email or web address] does have facilitated groups. Past Medical History: Initial diagnosis right breast cancer 2013 stage I with lumpectomy followed by radiation. Followed by hormonal treatment completed 2019. Hypertension, depression, anxiety, panic attacks, s/p section, hysterectomy, lumpectomy Social History - Living Situation Living arrangement: At home Living Situation: With spouse/s.o. 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 She has reconnected with her catholic, she has 2 children when in [place] and one in [place] he has just gotten . Car has a daughter and a son and unfortunately lost his son nearby who is a big support in a recent tragic accident Medications/Allergies - Medications Home Medications: Ambulatory Orders Medication Instructions Recorded Confirmed PARoxetine [Paxil] 40 mg PO DAILY 01/13/20 03/02/21 Prochlorperazine [Compazine] 10 mg PO PRN PRN 01/13/20 03/02/21 Morphine Ir [Ms Ir] 15 mg PO Q6H PRN #60 tablet 02/11/20 03/02/21 Palbociclib [Ibrance] 125 mg PO DAILY 02/17/20 03/02/21 Fulvestrant [Faslodex] 500 mg IM TITR 12/16/20 03/02/21 ALPRAZolam [Alprazolam] 0.5 mg PO BID PRN 01/10/21 03/02/21 Morphine Sulfate ER [Ms Contin] 30 mg PO BID 01/10/21 03/02/21 Temazepam [Restoril] 30 mg PO QPM PRN 01/10/21 03/02/21 Senna [Senokot] 1 - 2 tab PO BID PRN 01/17/21 03/02/21 polyethylene glycoL 3350 [Miralax] 8.5 gm PO DAILY 01/17/21 03/02/21 Aripiprazole [Abilify] 2 mg PO DAILY 02/22/21 03/02/21 Pregabalin [Lyrica] 25 mg PO TID MDD titrating from 25 03/02/21 03/02/21 mg daily - Allergies Allergies/Adverse Reactions: Allergies Allergy/AdvReac Type Severity Reaction Status Date / Time acetaminophen [From Vicodin] AdvReac Nausea Verified 02/22/21 11:25 hydrocodone [From Vicodin] AdvReac Nausea Verified 02/22/21 11:25 Review of Systems - Constitutional Constitutional: reports: Fatigue (worsening as coming to end of Ibrance wrangell; sleeps more), Weakness, Night sweats (less in colder weather), Weight stable - Ears, Nose & Throat Ears, Nose & Throat: reports: Postnasal drainage - Cardiovascular Cardiovascular: reports: Exertional dyspnea, Decr. exercise tolerance. denies: Palpitations, Chest pain, Edema, Syncope - Respiratory Respiratory: reports: SOB with exertion. denies: Cough, SOB at rest - Gastrointestinal Gastrointestinal: reports: Early satiety. denies: Constipation (managing better), Reflux/heartburn - Musculoskeletal Musculoskeletal: reports: Stiffness, Limited range of motion (left arm worsening), Muscle weakness, Joint pain (left shoulder pain; limited mobility) - Integumentary Integumentary: reports: Dryness - Neurological Neurological: reports: General weakness, Numbness (left hand/arm) - Psychiatric Psychiatric: reports: Depression (mild improvement even with grief reaction), Anxiety (fluctuates;) - Endocrine Endocrine: reports: Intolerance to cold - Hematologic/Lymphatic Hematologic/Lymph: denies: Anemia (13.6) - All Other Systems All Other Systems: reports: Reviewed and negative Physical Exam - Vital Signs Pulse Rate: 65 Respiratory Rate: 16 O2 Saturation: 97 (ra @ rest) Blood Pressure: 127/84 - Physical Exam General Appearance: positive: No acute distress, Alert Eyes Bilateral: positive: Normal inspection Neck: positive: Trachea midline Cardiovascular: positive: Regular rate & rhythm Respiratory: positive: No respiratory distress, Breath sounds nml Abdomen: positive: Soft Skin: positive: Pallor, Dryness Extremities: positive: No pedal edema Neurologic/Psychiatric: positive: Oriented x3, Mood/affect nml, Weakness Palliative Care - POLST Patient has POLST: No POLST Status: Full Code Pain: Pain unchanged, Location (left shoulder/back/ribs; describes "band" at T7 level; sharp shooting down ulner compression LLE) Tiredness/Fatigue: Severe (7-10) Drowsiness/Sedation: Moderate (4-6) Nausea: Mild (1-3) Anorexia: Mild (1-3) Dyspnea: Moderate (4-6) (fluctuates; with activity) Depression: Mild (1-3) Anxiety: Moderate (4-6) Feelings of wellbeing/Perceived Quality of Life: Fair, Acceptable, Comment ("all things consider") Sleep: Variable sleep pattern Constipation: Yes, Opoid induced, Managed Performance Status: Patient's fatigue and energy impacts her functional status. She is independent in her ADLs, she is limited with her left arm movement, but still is managing. Her is very supportive and assists her as she needs. - Palliative Care Discussion: Discussion related to patient's anxiety, past coping with anxiety, and current feelings regarding current situation. The wedding this past weekend was a short-term goal, she made it through go she is quite fatigued, and enjoyed connecting with family. She does understand the seriousness of her illness, is trying to live life to the fullest, and feels she has support. She is interested in pursuing a support group, given especially the pandemic, there are limitations, discussed a couple options. Results - Lab Results Lab results reviewed: Yes Impression and Recommendations - Palliative Care Impression: This a briana 60-year-old woman with recurrent breast cancer, with known extensive mets to the bones, currently receiving Ibrance, Faslodex and Xgeva. Patient's pain is most persistent and discomfort in the left area of humeri/shoulder. Patient satisfied with current regimen, will though add pregabalin for neuropathic component with goal for improved function and comfort in left arm/back. Palliative care providing support for pain and symptom man agement, psychosocial support, and anticipatory guidance Recommendations/Counseling Done: 1. Pain of neoplastic origin. Patient has MS Contin twice a day, with MSIR 15 mg as needed for breakthrough, does use 3-4 in 24 hours triggered by increased activity and standing. She does have escalating pain and limitation range of motion of her left arm and shoulder, at this point in time is deferring radiation treatment. Will initiate pregabalin for neuropathic component of both metastatic as well as chronic pain of her left extremity. Counseled to start with pregabalin 25 mg at bedtime x3 days, then twice daily x3 days then 3 times daily and will check in with her on effectiveness. For further titration. 2. Oral candidiasis. This is resolved. 3. Anxiety. She does feel she is currently managing, we did discuss other ways of support. Patient has enlisted [facility] community, discussed deep breathing exercises to supplement her as needed use of alprazolam. Recommended [email or web address] support group or follow-up with [facility]are[facility] Odonnell website. Counseling provided regarding normalizing current feelings and psychosocial support provided 4. Fatigue. This is multifactorial, is coming off her Ibrance, which does exacerbate her fatigue. She does try to stay active, and pace activities. We will continue to monitor. 5. Advanced care planning. Continue to build rapport with patient and , acknowledging difficult worrisome journey. Continuing to focus on quality of life issues. 60 minutes review of chart, labs, scans, coordination of care with oncology follow-up on bone scan CD, report to be available tomorrow. With updated information. [id number], counseling regarding pain and symptom management, and anticipatory guidance.
== END 2021-03-02 14:01 | disposition home or self-care (01) ==
LOC: PC 14:00
PROVIDERS: ATTEND Nurse Practitioner Adult Health
DX: Z51.5 Encounter for palliative care (principal); G89.3 Neoplasm related pain (acute) (chronic); C50.919 Malignant neoplasm of unspecified site of unspecified female breast; C79.51 Secondary malignant neoplasm of bone; R53.83 Other fatigue; G56.20 Lesion of ulnar nerve, unspecified upper limb; F32.9 Major depressive disorder, single episode, unspecified; F41.9 Anxiety disorder, unspecified; F41.0 Panic disorder [episodic paroxysmal anxiety]; I10 Essential (primary) hypertension; B37.0 Candidal stomatitis; Z79.899 Other long term (current) drug therapy
CPT/HCPCS: 99215

== ENCOUNTER 2021-04-05 10:32 | Outpatient (CLI) | payer OTHER ==
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
== END 2021-04-05 10:33 | disposition home or self-care (01) ==
LOC: PC 10:32
PROVIDERS: ATTEND Nurse Practitioner Adult Health
DX: Z51.5 Encounter for palliative care (principal); G89.3 Neoplasm related pain (acute) (chronic); M25.512 Pain in left shoulder; M25.511 Pain in right shoulder; C50.919 Malignant neoplasm of unspecified site of unspecified female breast; C79.51 Secondary malignant neoplasm of bone; N39.0 Urinary tract infection, site not specified; F41.9 Anxiety disorder, unspecified; R53.83 Other fatigue; Z79.899 Other long term (current) drug therapy
CPT/HCPCS: 99215

== ENCOUNTER 2021-04-29 12:51 | Outpatient (CLI) | payer OTHER ==
--- NOTE | 2021-04-29 14:28 | CONSULTATION NOTE ---
Palliative Care Follow Up - Referral Referring Provider: Dr. Shannon Hicks Time of Visit: 1300 45 min Referral setting: [facility] Referral Reason: Pain of neoplastic origin/Anxiety/Met Breast CA - Information Sources Records reviewed: Previous records reviewed History/Review of Systems obtained from: Patient, Family ( Car present) Exam limitations: No limitations - History of Present Illness Update Brief HPI Update: This is a 60-year-old woman with metastatic breast cancer, extensive mets to the bones, diagnosed in December 2019 currently on Ibrance having significant fatigue. She has been managed on MS Contin 30 mg twice daily, with MS 15 mg immediate release for breakthrough pain averaging 3-4 tabs in 24 hours. She has developed increased pain bilaterally in her knees, significant with sitting to standing, worsening with activity and walking. She does have known mets at her proximal femur, I suspect the knees are more chronic osteoarthritis in nature. She has used some CBD and massage with some moderate relief, but still interferes with her activity level. Patient's pain level is a 5 out of 10, she has a fairly high tolerance but it is quite fatiguing. Her pain is mostly located in her left shoulder which is most significant in her mid thoracic back that radiates to the left, As well as bilateral hip pain worsening with twisting and standing as well. He does have a long-term no neuropathy in her left elbow to her left to outer fingers, this is remained fairly persistent. Patient recently returned from a trip to [place], she did enjoy traveling and the distraction. Though she was much more active and did exacerbate her pain overall. She is getting ready to go visit her father and family and [place], she is looking forward to this. We are ordering her medications to be able to cover while she is gone, and reviewed her current medication levels with no changes needed other than has put pregabalin on hold as did not appreciate any significant improvement and looking at trying to decrease her sleepiness in the a.m. Patient continues to struggle with anxiety, is trying to live her life to the fullest given her stage IV disease. She has spending time with friends and family and this does help as far as distraction in the context of managing her symptoms. She is interested in considering physical therapy and Occupational Therapy to continue to be independent as long as possible. Will make referral for her return. We will also reach out to oncology to see if she is a candidate for some injections in her knees for pain control, did recommend trying Voltaren gel to see if would help with inflammation. Past Medical History: Initial diagnosis right breast cancer 2012, stage I with lumpectomy followed by radiation. Patient did receive hormonal treatment completed in 2019. Hypertension, depression, anxiety, panic attacks, s/p section, hysterectomy, lumpectomy Social History - Living Situation Living arrangement: At home Living Situation: With spouse/s.o. 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 Medications/Allergies - Medications Home Medications: Ambulatory Orders Medication Instructions Recorded Confirmed PARoxetine [Paxil] 40 mg PO DAILY 01/13/20 04/29/21 Prochlorperazine [Compazine] 10 mg PO PRN PRN 01/13/20 04/29/21 Morphine Ir [Ms Ir] 15 mg PO Q6H PRN #60 tablet 02/11/20 04/29/21 Palbociclib [Ibrance] 125 mg PO DAILY 02/17/20 04/29/21 Fulvestrant [Faslodex] 500 mg IM TITR 12/16/20 04/29/21 ALPRAZolam [Alprazolam] 0.5 mg PO BID PRN 01/10/21 04/29/21 Morphine Sulfate ER [Ms Contin] 30 mg PO BID 01/10/21 04/29/21 Temazepam [Restoril] 30 mg PO QPM PRN 01/10/21 04/29/21 Senna [Senokot] 1 - 2 tab PO BID PRN 01/17/21 04/29/21 polyethylene glycoL 3350 [Miralax] 8.5 gm PO DAILY 01/17/21 04/29/21 Aripiprazole [Abilify] 2 mg PO DAILY 02/22/21 04/29/21 Pregabalin [Lyrica] 25 mg PO TID MDD ON HOLD 03/02/21 04/29/21 - Allergies Allergies/Adverse Reactions: Allergies Allergy/AdvReac Type Severity Reaction Status Date / Time acetaminophen [From Vicodin] AdvReac Nausea Verified 02/22/21 11:25 hydrocodone [From Vicodin] AdvReac Nausea Verified 02/22/21 11:25 Review of Systems - Constitutional Constitutional: reports: Fatigue (worsening), Weakness, Night sweats (less in colder weather), Weight stable - Ears, Nose & Throat Ears, Nose & Throat: reports: Postnasal drainage - Cardiovascular Cardiovascular: reports: Exertional dyspnea, Decr. exercise tolerance. denies: Palpitations, Chest pain, Edema, Syncope - Respiratory Respiratory: reports: SOB with exertion. denies: Cough, SOB at rest - Gastrointestinal Gastrointestinal: reports: Good appetite (improved). denies: Constipation (managing better), Reflux/heartburn - Musculoskeletal Musculoskeletal: reports: Stiffness, Limited range of motion (left arm worsening), Muscle weakness, Joint pain (left shoulder pain; limited mobility; bilateral hip pain; mid scapular left side radiating into left shoulder;), Transfer issues (has upright walker to off load but not using) - Integumentary Integumentary: reports: Dryness - Neurological Neurological: reports: General weakness, Numbness (left hand/arm improved with pregabalin originally; does not think helping now) - Psychiatric Psychiatric: reports: Depression (mild improvement even with grief reaction), Anxiety (fluctuates; using alprazalom more when not distracted; recently had company only used if needed for sleep) - Endocrine Endocrine: reports: Intolerance to cold - Hematologic/Lymphatic Hematologic/Lymph: denies: Anemia (13.6) - All Other Systems All Other Systems: reports: Reviewed and negative Physical Exam - Vital Signs Pulse Rate: 59 Respiratory Rate: 18 Blood Pressure: 136/81 - Physical Exam General Appearance: positive: No acute distress Eyes Bilateral: positive: Normal inspection ENT: positive: No signs of dehydration Neck: positive: Trachea midline Cardiovascular: positive: Regular rate & rhythm Respiratory: positive: No respiratory distress, Breath sounds nml Abdomen: positive: Soft Skin: positive: Pallor, Dryness Extremities: positive: No pedal edema Neurologic/Psychiatric: positive: Oriented x3, Mood/affect nml, Weakness Palliative Care - POLST Patient has POLST: No Pain: Pain worsening, Location (see hPI), Severity (5/10) Tiredness/Fatigue: Moderate (4-6) Drowsiness/Sedation: Moderate (4-6) Nausea: None Anorexia: Mild (1-3) Dyspnea: Moderate (4-6) Depression: Moderate (4-6) Anxiety: Moderate (4-6) Feelings of wellbeing/Perceived Quality of Life: Good, Acceptable Sleep: Sleeps well Constipation: Yes, Opoid induced, Managed Performance Status: Patient is limited by her pain and activity intolerance. Is interested in improving this, would like to not lose any more independence. She does have high risk for frozen shoulder on that left side. She would like to trial some activities to strengthen her lower extremities, will make a referral to [facility] physical therapy.Patient will return on 05/16. - Palliative Care Discussion: Patient is looking forward to her visit with her father and other family. She is leaving next Sunday, finds traveling very much uplifts her spirits. Continues to struggle with anxiety and depression, but feels like current regimen does not need any adjustments. Patient goals are to try and focus on "normal" as possible, though patient does present with fairly high symptom burden has a fairly high tolerance for pain. Results - Lab Results Lab and Imaging Results: Reviewed updated bone scan comparison does actually show improvement overall, patient and grateful to have this information. Copy provided Impression and Recommendations - Palliative Care Impression: This is a briana 60-year-old woman with recurrent metastatic breast cancer to the bones, currently receiving Ibrance, Faslodex and Xgeva. Patient's pain continues persistent, at this point in time she does not want any adjustments. Patient did not proceed pregabalin for neuropathic component of her left arm pain helpful, will put back on hold. Patient continues to struggle with anxiety and depression but no med changes made. Patient getting ready for travel to [place], is looking forward to this. Palliative care providing support for pain and symptom management, psychosocial support and anticipatory guidance. Recommendations/Counseling Done: 1. Pain of neoplastic origin. Patient currently using 30 mg extended release twice daily, with MSIR 15 mg as needed fluctuating between 2 and 4 tabs daily. Pain is triggered by activity and standing, suspect also Hallie arthritic component particularly to her bilateral knee pain. Counseling provided regarding considering using Voltaren on her knees, will send communication to oncologist regarding possible cortisone injections. Patient currently does not want a change to her regimen, will continue to follow. Prescription sent for early refills for vacation. 2. History of UTIs. Patient had completed her Cipro with resolution. Patient has had recurrent UTIs. Given patient is traveling, we will go ahead and provide her a prescription for as needed. 3. Anxiety. Patient feels she is currently managing with intermittent use of a lprazolam for breakthrough anxiety. She enjoyed her trip to [place], has pending visit to see family in [place]. She finds these things very uplifting and helping to distract her. 4. Fatigue. This is multifactorial, with worsening as she comes off her Ibrance. She is to have most likely a dose reduction, she does try and stay active and pace activities. She is interested on return for physical therapy. We will go ahead and provide prescription. 5. Advanced care planning. Continue to build rapport for patient and , focusing on quality of life issues, and defining goals of care. 45 minutes with Review of labs, oncology notes, scans, [id number] for follow- up on pain and symptom management, follow-up on Rx, and coordination of care with oncology team
== END 2021-04-29 12:52 | disposition home or self-care (01) ==
LOC: PC 12:51
PROVIDERS: ATTEND Nurse Practitioner Adult Health
DX: Z51.5 Encounter for palliative care (principal); G89.3 Neoplasm related pain (acute) (chronic); C79.51 Secondary malignant neoplasm of bone; C50.911 Malignant neoplasm of unspecified site of right female breast; F41.9 Anxiety disorder, unspecified; R53.83 Other fatigue; R53.1 Weakness; R06.09 Other forms of dyspnea; G62.9 Polyneuropathy, unspecified; K59.03 Drug induced constipation; T40.2X5A Adverse effect of other opioids, initial encounter; Z79.891 Long term (current) use of opiate analgesic; Z79.899 Other long term (current) drug therapy; Z79.818 Long term (current) use of other agents affecting estrogen receptors and estrogen levels; Z74.09 Other reduced mobility; Z87.440 Personal history of urinary (tract) infections; Z92.3 Personal history of irradiation
CPT/HCPCS: 99215

== ENCOUNTER 2021-06-14 13:45 | Outpatient (CLI) | payer OTHER ==
--- NOTE | 2021-06-14 19:10 | CONSULTATION NOTE ---
Palliative Care Follow Up - Referral Referring Provider: Dr. Fernandes Time of Visit: [id number] Referral setting: [facility] [place] Referral Reason: Pain of neoplastic origin/Depresssion/Vaginal Dryness/Met Breast CA - Information Sources Records reviewed: Previous records reviewed History/Review of Systems obtained from: Patient Exam limitations: No limitations - History of Present Illness Update Brief HPI Update: This is a 60-year-old woman with metastatic breast cancer, extensive mets to the bones. She is receiving Ibrance, with persistent fatigue and continued neutropenia. She will be restarting tomorrow, as oncology has given her the go ahead, her ANC though is 0.9. Patient is managed on MS Contin 30 mg twice daily, for metastatic bone pain, this is mostly identified in her mid thoracic back area, left shoulder is the worst with some nerve compression. She has bilateral hip pain, worse on the right, she has had some bilateral knee pain more likely osteoarthritic in nature, as it does respond to exercise, and topicals as well as lidocaine patches. Her pain is exacerbated with standing and movement, it is managed with her breakthrough pain MS 15 mg IR, 2 tabs, this fluctuates from 2-6 tabs depending on her activity level. She has been to [place], and does have a trip planned back home to [place], as well as [place] at [facility]. She is having an exacerbation of depressive feelings, more persistent emotional fatigue and distress with multiple stressors at this point in time. She continues to struggle with fluctuating anxiety, given her stage IV disease, and is looking at more life-changing decisions as things have changed in their personal life that brought them to [facility]. She does enjoy spending time with friends and family, this provides a distraction in the context of managing her symptoms and does bring her some genaro. She has not had her shoulder x-ray yet, nor her physical therapy she would like to be independent for as long as possible. She also identifies difficulty with vaginal dryness related to decreased estrogen and discussion regarding innocently and sexual encounters in the context of pain. Past Medical History: Initial diagnosis right breast cancer 2012; stage I with lumpectomy followed by radiation. Patient did receive hormonal treatment completed in 2019. Hypertension, depression, anxiety, panic attacks, s/p section, hysterectomy, lumpectomy Social History - Living Situation Living arrangement: At home Living Situation: With spouse/s.o. 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 She and her come from [place], patient's is retired director video very attentive and supportive but have had significant amount of tragedy grief and loss with the of his son, and changing landscape. They have had discussions about relocating, patient does experience SAD, is wondering if she would benefit from a more [place] location. Medications/Allergies - Medications Home Medications: Ambulatory Orders Medication Instructions Recorded Confirmed PARoxetine [Paxil] 40 mg PO DAILY 01/13/20 06/14/21 Prochlorperazine [Compazine] 10 mg PO PRN PRN 01/13/20 06/14/21 Palbociclib [Ibrance] 125 mg PO DAILY 02/17/20 06/14/21 Fulvestrant [Faslodex] 500 mg IM TITR 12/16/20 06/14/21 ALPRAZolam [Alprazolam] 0.5 mg PO BID PRN 01/10/21 06/14/21 Morphine Sulfate ER [Ms Contin] 30 mg PO BID 01/10/21 06/14/21 Temazepam [Restoril] 30 mg PO QPM PRN 01/10/21 06/14/21 Senna [Senokot] 1 - 2 tab PO BID PRN 01/17/21 06/14/21 polyethylene glycoL 3350 [Miralax] 8.5 gm PO DAILY 01/17/21 06/14/21 Aripiprazole [Abilify] 2 mg PO DAILY 02/22/21 06/14/21 Morphine Ir [Ms Ir] 30 mg PO TID PRN MDD 90 06/14/21 06/14/21 - Allergies Allergies/Adverse Reactions: Allergies Allergy/AdvReac Type Severity Reaction Status Date / Time acetaminophen [From Vicodin] AdvReac Nausea Verified 02/22/21 11:25 hydrocodone [From Vicodin] AdvReac Nausea Verified 02/22/21 11:25 Review of Systems - Constitutional Constitutional: reports: Fatigue (persistent; worsening feels emotional vs physical), Weakness, Night sweats (less in colder weather), Weight gain - Ears, Nose & Throat Ears, Nose & Throat: reports: Postnasal drainage - Cardiovascular Cardiovascular: reports: Exertional dyspnea, Decr. exercise tolerance. denies: Palpitations, Chest pain, Edema, Syncope - Respiratory Respiratory: reports: SOB with exertion. denies: Cough, SOB at rest - Gastrointestinal Gastrointestinal: reports: Good appetite (improved). denies: Constipation (managing better), Reflux/heartburn - Musculoskeletal Musculoskeletal: reports: Stiffness, Limited range of motion (left arm worsening), Muscle weakness, Joint pain (left shoulder pain; limited mobility; bilateral hip pain; mid scapular left side radiating into left shoulder;), Transfer issues (has upright walker to off load but not using) - Integumentary Integumentary: reports: Dryness - Neurological Neurological: reports: General weakness, Numbness (left hand/arm improved with pregabalin originally; does not think helping now) - Psychiatric Psychiatric: reports: Depression, Anxiety (fluctuates; using alprazalom more when not distracted; recently had company only used if needed for sleep) - Endocrine Endocrine: reports: Intolerance to cold - Hematologic/Lymphatic Hematologic/Lymph: denies: Anemia (13.6) - All Other Systems All Other Systems: reports: Reviewed and negative Physical Exam - Vital Signs Pulse Rate: 74 Respiratory Rate: 18 Blood Pressure: 128/82 - Physical Exam General Appearance: positive: Alert, Mild distress Eyes Bilateral: positive: Normal inspection ENT: positive: No signs of dehydration Neck: positive: Trachea midline Cardiovascular: positive: Regular rate & rhythm Respiratory: positive: No respiratory distress, Breath sounds nml Abdomen: positive: Soft Skin: positive: Pallor, Dryness Extremities: positive: No pedal edema Neurologic/Psychiatric: positive: Oriented x3, Weakness, Depressed mood/affect (tearful today) Palliative Care - POLST Patient has POLST: No POLST Status: Full Code Pain: Pain unchanged (fluctuates related to activity), Location (see HPI), Severity (4/10 with morphine) Tiredness/Fatigue: Moderate (4-6) Drowsiness/Sedation: Mild (1-3) Nausea: Mild (1-3) Anorexia: Moderate (4-6) Dyspnea: Mild (1-3) Depression: Moderate (4-6) Anxiety: Moderate (4-6) Feelings of wellbeing/Perceived Quality of Life: Fair, Acceptable Sleep: Variable sleep pattern (multiple factors influencing; pain in hips wakes up) Constipation: No Performance Status: Patient has been more sedentary with the change of weather, when she is more active her knees are better. She has not started physical therapy yet, I will reach out and see the delay, awaiting her to complete her shoulder x-ray prior to starting. She will call and try and get completed.She is able to manage her own ADLs, but does need some assistance with dressing because of limited mobility in her left shoulder and arm. - Palliative Care Discussion: Discussion related to both emotional and physical stressors, exploring priorities and what is most important, does identify family, sunshine, and more distraction particularly travel is something that brings her quality of life. Counseling provided also regarding concerns for sexual intimacy and normalized her current experiences. Results - Lab Results Lab results reviewed: Yes Lab and Imaging Results: Reviewed findings, deferred to oncologist regarding restarting Ibrance, will restart tomorrow. Impression and Recommendations - Palliative Care Impression: This is a briana 61-year-old woman with recurrent metastatic breast cancer to the bones, currently receiving Ibrance, Faslodex and Xgeva. Patient's pain continues to be persistent, will make some adjustments to better accommodate patient's increased activity. Patient expressing emotional and physical stressors, appropriate in the context of the complexity of her situation. Palliative care providing support for pain and symptom management, psychosocial support, and anticipatory guidance Recommendations/Counseling Done: 1. Pain of neoplastic origin. Patient is currently using 30 mg extended release of them as twice daily, feels like baseline/background time-released okay. MSIR continues to fluctuate, depending on activity. She is planned to be more active with her upcoming trip, she is currently taking to 15 mg tabs two at a time, discussed making it easier with 30 mg tabs and will make it so she can use up to 3 times a day with increased activity. Patient verbalized understanding to use appropriately. She is getting good relief with CBD and lidocaine patches on her knees. 2. Vaginal dryness/dypareunia, did discuss/counseling regarding hormonal changes create more symptoms. Patient has used multiple products, will trial and recommend products as find available. If topical/lubricants not effective, recommended RePlens, may need to revisit risk/benefit of estring low dose vaginal estrogen. 3. Depression. This is multifactorial, did discuss recommendation and use of light box for SA D, and proper technique with recommendation of 30 minutes in a.m. consistently. Counseling provided to normalize current feelings of grief and loss in the context of the complexity of her illness. 4. Bilateral hip pain. We did discuss since it does cause awakening most likely pressure, consider adding memory foam at least 2 inches to her current sleeping arrangement. 5. Dry skin. Recommended CeraVe wash and lotion on a regular basis secondary to side effects of medication. 6. Weight gain. Patient is concerned she is not eating very much, but continues with weight gain. Patient is on multiple meds that are adding to this as well as her sedentary status. She has not started physical therapy yet, she will get her shoulder x-ray and then I will reach out and move referral along. This referral was done several weeks ago. Also discussed diet modifications, recommended eat to beat disease, as a good resource for healthy eating in the context of cancer diagnosis. 7. Advanced care planning. Just reviewed patient's priorities, recommended weighing benefits and burdens of looking at what brings her most satisfaction and genaro. She does enjoy traveling, family, and sunshine. Patient does have supportive , but is isolated in her community, may benefit from revisiting concerns related to social isolation exacerbated by the pandemic and new community. 60 minutes with greater than 50% of this done in counseling regarding pain and symptom management, anticipatory guidance, and counseling for adjustment to illness.
== END 2021-06-14 13:46 | disposition home or self-care (01) ==
LOC: PC 13:45
PROVIDERS: ATTEND Nurse Practitioner Adult Health
DX: Z51.5 Encounter for palliative care (principal); G89.3 Neoplasm related pain (acute) (chronic); C50.911 Malignant neoplasm of unspecified site of right female breast; C79.51 Secondary malignant neoplasm of bone; F32.9 Major depressive disorder, single episode, unspecified; M25.552 Pain in left hip; M25.551 Pain in right hip; L85.3 Xerosis cutis; N94.10 Unspecified dyspareunia; Z79.891 Long term (current) use of opiate analgesic
CPT/HCPCS: 99215

== ENCOUNTER 2021-06-24 13:45 | Outpatient (CLI) | payer OTHER ==
--- NOTE | 2021-06-24 16:59 | XRAY Report ---
PROCEDURE: Shoulder 3 View LT INDICATIONS: LT SHOULDER PAIN TECHNIQUE: 3 views of the shoulder were acquired. COMPARISON: None. FINDINGS: Bones: Bone mineralization demonstrates diffusely mixed lytic and sclerotic pattern throughout many o f the ribs, scapula, and proximal humerus. There is an expansile lesion in the left sixth rib arcs, a nd callus formation around chronic fractures in the right fourth and fifth ribs. There are at least 2 lytic lesions in the proximal femoral diaphysis, 1 causing slight endosteal scalloping. There is mil d glenohumeral joint space loss and spurring. Mild degenerative change at the acromioclavicular joint . No visible fractures. Soft tissues: No suspicious soft tissue calcifications. IMPRESSION: 1. 2 small lytic lesions in the proximal humerus are suspicious for active metastatic disease on a ba ckground of widespread metastatic disease. Focused nuclear medicine bone scan could be performed. 2. No visible fractures. 3. Glenohumeral joint degeneration. Reviewed by: Marianna Conklin MD on 06/24/2021 4:57 PM PST Approved by: Marianna Conklin MD on 06/24/2021 4:57 PM PST Station ID: [id number]
== END 2021-06-24 13:46 | disposition home or self-care (01) ==
LOC: DI 13:45
PROVIDERS: ATTEND Physician Assistant
DX: M19.012 Primary osteoarthritis, left shoulder (principal); M89.9 Disorder of bone, unspecified

== ENCOUNTER 2021-07-19 13:22 | Outpatient (CLI) | payer OTHER ==
--- NOTE | 2021-07-19 17:16 | CONSULTATION NOTE ---
Palliative Care Follow Up - Referral Referring Provider: Dr. Fernandes Time of Visit: 1315 45 min Referral setting: [facility] [place] Referral Reason: Pain of neoplastic origin/Fatigue/Met Breast CA to bones - Information Sources Records reviewed: Previous records reviewed History/Review of Systems obtained from: Patient Exam limitations: No limitations - History of Present Illness Update Brief HPI Update: This is a 61-year-old woman with metastatic breast cancer, with extensive bone mets originally diagnosed in December 2019. She is currently on Ibrance, though it is on hold secondary to neutropenia, she is awaiting her counts today to see if going to start tomorrow. Patient is managed on MS Contin 30 mg twice a day, she identifies most of her pain in her mid thoracic back area, left shoulder is worsening with some nerve compression. Her shoulder x-ray does show some lytic lesions, would be interested in a revisit for possible radiation support. She also has bilateral hip pain, her knee pain is improved and was attributed most likely to osteoarthritis. Is it has responded to exercise and topicals as well as lidocaine patches. Her pain is exacerbated with standing and movement, it is managed with her breakthrough pain of 30 mg immediate release, she uses 2-3 times a day, depending on her activity level. She has been traveling quite a bit, and is hoping to travel to [place] where she is meeting her family. This is the first Levi after the of her 's son, so is hoping this will go well unfortunately her son just tested positive for Covid. Despite having booster shots and masking. She does enjoy spending time with friends and family, but is finding the fatigue more persistent and difficulty getting up in the morning. We have talked previously about trialing some Ritalin, she would like to give this a try though we did discuss my concern in the context of her underlying anxiety disorder. Past Medical History: She will diagnosis right breast cancer 2012 with stage I lumpectomy followed by radiation. Patient did receive hormonal treatment completed in 2019. Hypertension, depression, anxiety, panic attacks, s/p section, hysterectomy, lumpectomy. Social History - Living Situation Living arrangement: At home Living Situation: With spouse/s.o. 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 She and her have come from [place], patient's is retired criminal justice lawyer, very attentive and supportive. They have are having discussions about relocating, [facility], awaiting her scans and outcomes from her August appointment pending. She and her are doing extensive traveling, she does enjoy being with her friends and families and distracted from her current diagnosis as well as wanting to live life to the fullest currently. Medications/Allergies - Medications Home Medications: Ambulatory Orders Medication Instructions Recorded Confirmed PARoxetine [Paxil] 40 mg PO DAILY 01/13/20 07/19/21 Prochlorperazine [Compazine] 10 mg PO PRN PRN 01/13/20 07/19/21 Palbociclib [Ibrance] 125 mg PO DAILY MDD HOLD 02/17/20 07/19/21 Fulvestrant [Faslodex] 500 mg IM TITR 12/16/20 07/19/21 ALPRAZolam [Alprazolam] 0.5 mg PO BID PRN 01/10/21 06/14/21 Morphine Sulfate ER [Ms Contin] 30 mg PO BID 01/10/21 07/19/21 Temazepam [Restoril] 30 mg PO QPM PRN 01/10/21 07/19/21 Senna [Senokot] 1 - 2 tab PO BID PRN 01/17/21 07/19/21 polyethylene glycoL 3350 [Miralax] 8.5 gm PO DAILY 01/17/21 07/19/21 Aripiprazole [Abilify] 2 mg PO DAILY 02/22/21 07/19/21 Methylphenidate [Ritalin] 5 - 10 mg PO BID PRN MDD 20 mg 07/19/21 07/19/21 Morphine Ir [Ms Ir] 30 mg PO TID PRN MDD 90 07/19/21 07/19/21 - Allergies Allergies/Adverse Reactions: Allergies Allergy/AdvReac Type Severity Reaction Status Date / Time acetaminophen [From Vicodin] AdvReac Nausea Verified 02/22/21 11:25 hydrocodone [From Vicodin] AdvReac Nausea Verified 02/22/21 11:25 Review of Systems - Constitutional Constitutional: reports: Fatigue (has been worse and persistent even off Ibrance), Weakness, Night sweats, Weight gain - Ears, Nose & Throat Ears, Nose & Throat: reports: Postnasal drainage - Cardiovascular Cardiovascular: reports: Exertional dyspnea, Decr. exercise tolerance. denies: Palpitations, Chest pain, Edema, Syncope - Respiratory Respiratory: reports: SOB with exertion. denies: Cough, SOB at rest - Gastrointestinal Gastrointestinal: reports: Early satiety. denies: Constipation (managing better), Reflux/heartburn - Genitourinary Genitourinary: reports: Sexual dysfunction - Musculoskeletal Musculoskeletal: reports: Stiffness, Limited range of motion (left arm worsening), Muscle weakness, Joint pain (left shoulder pain; limited mobility; bilateral hip pain; mid scapular left side radiating into left shoulder;), Transfer issues (has upright walker to off load but not using) - Integumentary Integumentary: reports: Dryness - Neurological Neurological: reports: General weakness, Numbness (left hand/arm improved with pregabalin originally; does not think helping now) - Psychiatric Psychiatric: reports: Depression, Anxiety (fluctuates; using alprazalom more when not distracted; recently had company only used if needed for sleep) - Endocrine Endocrine: reports: Intolerance to cold - Hematologic/Lymphatic Hematologic/Lymph: denies: Anemia (13.1) - All Other Systems All Other Systems: reports: Reviewed and negative Physical Exam - Vital Signs Pulse Rate: 68 Respiratory Rate: 16 O2 Saturation: 98 Blood Pressure: 134/85 - Physical Exam General Appearance: positive: No acute distress, Alert Eyes Bilateral: positive: No scleral icterus ENT: positive: No signs of dehydration Neck: positive: Trachea midline Respiratory: positive: No respiratory distress Abdomen: positive: Soft Skin: positive: Pallor, Dryness Extremities: positive: No pedal edema Neurologic/Psychiatric: positive: Oriented x3, Weakness, Depressed mood/affect Palliative Care - POLST Patient has POLST: No POLST Status: Full Code Pain: Location (mid thoracic; most painful area upper arm/shoulder area), Severity (3 with meds/7/10 worse pain) Tiredness/Fatigue: Moderate (4-6) Drowsiness/Sedation: Moderate (4-6) Nausea: None Anorexia: Mild (1-3) Dyspnea: Mild (1-3) Depression: Moderate (4-6) (did initiate lightbox therapy) Anxiety: Moderate (4-6) Feelings of wellbeing/Perceived Quality of Life: Good, Acceptable Sleep: Variable sleep pattern Constipation: Yes, Opoid induced, Managed Performance Status: Patient is limited by pain, some difficulty with upper extremity dressing. Increased pain with extended standing, needs to pace herself or use medications. She is wanting to start physical therapy, but wants to wait until after her appointment with Dr. Silviano TORRES and travel plans. - Palliative Care Discussion: Discussion related to ongoing adjustment to illness, exploring priorities. She is looking forward to [employer], though disappointed her son most likely will not be able to join us because of his Covid exposure/Covid. Patient still continue to focus on priorities which is travel, which brings quality to her life. We will look at adjusting medications and medication prescriptions to be able to accommodate this. Results - Lab Results Lab results reviewed: Yes Impression and Recommendations - Palliative Care Impression: This is a briana 61-year-old woman with recurrent metastatic breast cancer to the bones, currently on hold with her Ibrance second to neutropenia, continues on Faslodex and Xgeva. Patient's pain continues to be persistent, particularly in her left shoulder/upper arm. Shoulder x-ray does show lytic lesions, will continue explore possibility of role of radiation in the future. Patient's most problematic symptom currently is persistent fatigue despite having a break from her Ibrance. Will trial some low-dose Ritalin to see if can provide support particular with holidays coming. Palliative care continue provide support for pain and symptom management, psychosocial support and anticipatory guidance Recommendations/Counseling Done: 1. Pain of neoplastic origin. Patient is currently using morphine extended release 30 mg twice daily, feels like baseline/background time-released working. MSIR continues to fluctuate depending on activity, she has transition over 30 mg tabs, using up to 3 times a day and timing around activity. 2. Fatigue. This is multifactorial, is quite surprised she does not feel better with a break from her Ibrance. We did discuss initiating some Ritalin, did express my concerns and weighing benefits and burdens with her underlying anxiety disorder. She has been instructed to trial a 2.5 mg dose, can increase to full dose if tolerates without any increase in anxiety. Instructed not to use before bed, last dose to be at 2:00. Counseling provided regarding strategies and ways to integrate this to combat her fatigue. 3. Depression. This is multifactorial, she has initiated use of light box for SA D, continuing to normalize current feelings of grief and loss in the context of the complexity of her illness. 4. Advanced care planning. Counseling provided regarding ongoing conversations about priorities, goals of care, and looking at ways to support and distract herself in the context of what is most important to her which is her family and friends. She is very much enjoying traveling, and continue to plan her treatments around this. 45 minutes with review of chart, oncology notes, labs, [id number] for counseling regarding pain and symptom management and anticipatory guidance, coordination of care with oncology team
== END 2021-07-19 13:23 | disposition home or self-care (01) ==
LOC: PC 13:22
PROVIDERS: ATTEND Nurse Practitioner Adult Health
DX: Z51.5 Encounter for palliative care (principal); G89.3 Neoplasm related pain (acute) (chronic); M54.6 Pain in thoracic spine; M25.512 Pain in left shoulder; M25.552 Pain in left hip; M25.551 Pain in right hip; C50.919 Malignant neoplasm of unspecified site of unspecified female breast; C79.51 Secondary malignant neoplasm of bone; R53.83 Other fatigue; F32.A Depression, unspecified; Z79.899 Other long term (current) drug therapy
CPT/HCPCS: 99215

== ENCOUNTER 2021-08-29 09:33 | Outpatient (CLI) | payer OTHER ==
--- NOTE | 2021-08-29 15:58 | Nuclear Medicine Report ---
PROCEDURE: Bone Whole Body INDICATIONS: BREAST AND BONE CA RADIOPHARMACEUTICAL: 24.9 mCi Tc-99m MDP IV. TECHNIQUE: Delayed whole-body scintigrams were obtained approximately 3-4 hours after intravenous injection of r adiotracer. Anterior and posterior views were acquired from vertex to feet. Additional left and rig ht lateral views of the calvarium were obtained. COMPARISON: Bone scan 02/10/2021, 12/12/2019. CT chest 01/13/2020, 11/25/2020, CT abdomen pelvis 11/25/2020. FINDINGS: Extensive abnormal uptake is redemonstrated including throughout the calvarium, within the cervical, thoracic, and lumbar spine, numerous bilateral ribs including thickening and eccentric uptake along t he left posterior fifth rib, the clavicles, the sternum, in the proximal humeri, and in the bilateral scapula consistent with osseous metastases. The distribution and degree of uptake are similar to the prior study. Transverse uptake within the T10 and T5 vertebral bodies correspond to mild compression deformities seen on the prior CT studies. IMPRESSION: 1. Extensive osseous metastases appear similar in distribution and degree of abnormal uptake compared to the prior bone scan study. Reviewed by: Zachary Gonsales MD on 08/29/2021 3:56 PM PST Approved by: Zachary Gonsales MD on 08/29/2021 3:56 PM PST Station ID: [id number]
== END 2021-08-29 09:34 | disposition home or self-care (01) ==
LOC: DI 09:33
PROVIDERS: ATTEND Internal Medicine Hematology & Oncology
DX: C50.911 Malignant neoplasm of unspecified site of right female breast (principal); C79.51 Secondary malignant neoplasm of bone
CPT/HCPCS: 78306

== ENCOUNTER 2021-09-07 13:00 | Outpatient (CLI) | payer OTHER ==
--- NOTE | 2021-09-07 16:15 | CONSULTATION NOTE ---
Palliative Care Follow Up - Referral Referring Provider: Dr. Shannon Hicks Time of Visit: 1300 45 minutes Ref[place] setting[place] [facility] [place] Reason: Pain of neoplastic origin/Met Breast CA/Depression/Anxiety - Information Sources Records reviewed: Previous records reviewed History/Review of Systems obtained from: Patient, Family (accompanied by Car today) Exam limitations: No limitations - History of Present Illness Update Brief HPI Update: This is a briana 61-year-old woman with metastatic breast cancer, with extensive bones mets, originally diagnosed in December 2019, with a right iliac bone biopsy. She has received radiation to her thoracic spine 01/2020, and has been on Ibrance, Faslodex, Xgeva since January/2020. She has had modification recently for her Ibrance 100 mg, secondary to leukopenia, she sees palliative care for management of pain, depression, anxiety, and fatigue.She recently had a bone scan from 08/29/2021, which shows disease is stable, and no evidence of disease progression. She has though had 06/24/2021 left shoulder x-ray that showed 2 lytic lesions in the upper humerus, where she has most of her localized pain, particularly with any kind of movement and with rolling over in bed. Her pain is exacerbated with standing and movement, she manages her breakthrough pain with 30 mg immediate release, she uses 2-4 times a day depending on her activity level. She is using it appropriately to improve function. She is on baseline sustained release of 30 mg twice daily. She is exploring follow-up for x-ray to the lytic regions of her left shoulder. She has known bilateral hip pain right greater than left with recent pulled muscle. She does have bilateral knee pain which has improved and most likely attributed to osteoarthritis as it has responded to exercise and topicals as well as lidocaine patches. She had been trialed on some pregabalin, has trialed gabapentin, did not find any improvement particularly targeted pain of her sharp shooting pains down her left arm and/or known residual of carpal tunnel. This was discontinued as we are trying to modify her pill burden. Patient has long-term depression, and has been on Paxil 40 mg for combination of depression and anxiety. With the tragic of her stepson, depression and anxiety was exacerbated, we did add Abilify 2 mg at bedtime with good response. She continues on this regimen with alprazolam on for breakthrough anxiety and/or panic attacks. She needs to use this rarely.Of note most recently we did trial Ritalin for fatigue, which had been persistent having difficulty getting up in the morning and was going to be traveling. She has been taking Ritalin 10 mg twice daily, with good response, and has actually improved her racing thoughts, so thought she may have underlying ADHD. She feels like she is feeling better overall as a result of this.Had been concerned it may exacerbate her anxiety, but has actually improved both her sleep and anxiety. Past Medical History: Right breast cancer 2012 with stage I lumpectomy followed by radiation. Hormonal treatment completed 2019. Hypertension, depression, anxiety, panic attacks, s/p , hysterectomy, lumpectomy Social History - Living Situation Living arrangement: At home Living Situation: With spouse/s.o. 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 They have decided to relocate, and are moving to [place]. They have been working diligently to put the house on the market. She and her like to travel, she enjoys being with friends and visiting with family. This helps distract her from her current diagnosis as well as her supporting her goal of wanting to live life to the fullest. Medications/Allergies - Medications Home Medications: Ambulatory Orders Medication Instructions Recorded Confirmed PARoxetine [Paxil] 40 mg PO DAILY 01/13/20 09/07/21 Prochlorperazine [Compazine] 10 mg PO PRN PRN 01/13/20 09/07/21 Palbociclib [Ibrance] 100 mg PO DAILY 02/17/20 09/07/21 Fulvestrant [Faslodex] 500 mg IM TITR 12/16/20 09/07/21 ALPRAZolam [Alprazolam] 0.5 mg PO BID PRN 01/10/21 09/07/21 Morphine Sulfate ER [Ms Contin] 30 mg PO BID 01/10/21 09/07/21 Temazepam [Restoril] 30 mg PO QPM PRN 01/10/21 09/07/21 Senna [Senokot] 1 - 2 tab PO BID PRN 01/17/21 09/07/21 polyethylene glycoL 3350 [Miralax] 8.5 gm PO DAILY 01/17/21 09/07/21 Aripiprazole [Abilify] 2 mg PO DAILY 02/22/21 09/07/21 Methylphenidate [Ritalin] 10 mg PO BID PRN MDD 20 mg 07/19/21 09/07/21 Morphine Ir [Ms Ir] 30 mg PO TID PRN MDD 90 07/19/21 09/07/21 - Allergies Allergies/Adverse Reactions: Allergies Allergy/AdvReac Type Severity Reaction Status Date / Time acetaminophen [From Vicodin] AdvReac Nausea Verified 02/22/21 11:25 hydrocodone [From Vicodin] AdvReac Nausea Verified 02/22/21 11:25 Review of Systems - Constitutional Constitutional: reports: Fatigue (notes more at end of Ibrance cycle), Weakness, Night sweats, Weight gain - Ears, Nose & Throat Ears, Nose & Throat: reports: Postnasal drainage - Cardiovascular Cardiovascular: reports: Exertional dyspnea, Decr. exercise tolerance. denies: Palpitations, Chest pain, Edema, Syncope - Respiratory Respiratory: reports: SOB with exertion. denies: Cough, SOB at rest - Gastrointestinal Gastrointestinal: reports: Good appetite. denies: Constipation (intermittent) - Musculoskeletal Musculoskeletal: reports: Stiffness, Limited range of motion (left arm worsening), Muscle weakness, Joint pain (left shoulder pain; limited mobility; bilateral hip pain; mid scapular left side radiating into left shoulder;), Transfer issues (has upright walker to off load but not using) - Integumentary Integumentary: reports: Dryness - Neurological Neurological: reports: General weakness, Numbness (left hand/arm improved with pregabalin originally; does not think helping now stopped) - Psychiatric Psychiatric: reports: Depression, Anxiety (fluctuates; using alprazalom more when not distracted; recently had company only used if needed for sleep) - Endocrine Endocrine: reports: Intolerance to cold - All Other Systems All Other Systems: reports: Reviewed and negative Physical Exam - Vital Signs Pulse Rate: 76 Respiratory Rate: 18 O2 Saturation: 98 (ra @ rest) Blood Pressure: 135/81 - Physical Exam General Appearance: positive: No acute distress, Alert Eyes Bilateral: positive: Normal inspection ENT: positive: No signs of dehydration Neck: positive: Trachea midline Cardiovascular: positive: Regular rate & rhythm Respiratory: positive: No respiratory distress, Breath sounds nml Abdomen: positive: Soft Skin: positive: Pallor, Dryness Extremities: positive: No pedal edema Neurologic/Psychiatric: positive: Oriented x3, Mood/affect nml Palliative Care - POLST Patient has POLST: No POLST Status: Full Code Pain: Pain improved, Location (See HPI most painful upper arm/shoulder area 5/10 worsening even with med; worse at night if particulary if rolls on) Tiredness/Fatigue: Moderate (4-6) Drowsiness/Sedation: Moderate (4-6) Nausea: Mild (1-3) Anorexia: Mild (1-3) Dyspnea: Mild (1-3) Depression: Mild (1-3) Anxiety: Mild (1-3) Feelings of wellbeing/Perceived Quality of Life: Fair, Acceptable, Comment (worried about the future and prognosis) Sleep: Variable sleep pattern (interupted by pain) Constipation: Yes, Opoid induced, Managed, Intermittent constipation Performance Status: Patient is limited by pain, some difficulty with upper extremity dressing. Increased pain with extended standing, exacerbated by her recent packing and getting ready to move. She had wanted to start physical therapy, but would recommend continue to pursue this when she moves. At this point in time this would be too much to take on. - Palliative Care Discussion: Patient focus and goal is to live life to the fullest. She likes to travel, is looking forward to relocating to new community. She does have some anxiety about changing healthcare teams, but reassured may actually have more opportunities in the context of clinical trials, other kinds of support given the larger institution, and reassured again patients with metastatic breast cancer to the bones, can have extended time. Her goals are to spend as much time with friends and family, enjoy the things that she likes, is looking [place] being in [place] she thinks this will help with her depression. Encouraged to continue with palliative care support, will initiate referral when moving date known. Results - Lab Results Lab results reviewed: Yes Impression and Recommendations - Palliative Care Impression: This is a briana 61-year-old woman with recurrent metastatic breast cancer to the bones, currently on Ibrance, Faslodex and Xgeva. Patient's pain continues to be persistent, particularly left shoulder/upper arm. Her recent x-ray does show 2 lytic lesions, recommended pursuing radiation prior to transitioning. She has relationship with [place]. Patient's persistent fatigue has improved slightly on the Ritalin, but the Ritalin has helped her depression anxiety and sleep. Palliative care continue provide support for pain and symptom management, psychosocial support and anticipatory guidance. Recommendations/Counseling Done: 1. Pain of neoplastic origin. Patient is currently using morphine extended release 30 mg twice daily, and MSIR fluctuates depending on activity, she has transition over 30 mg tabs, using up to 3 times a day and timing around activity. Patient feels current regimen is working, and is using appropriately. Patient reports she responded well last time with pain decreased with radiation to her back, encouraged to follow-up with Dr. Sims, referral currently is in place, if needs to be resent or be done, encouraged to reach out. 2. Fatigue. This is multifactorial, she is feeling slightly better with the Ritalin. She is using Ritalin 10 mg twice daily, without any exacerbation of her anxiety, in fact has improved her feelings of wellbeing, anxiety, and racing thoughts. She has been quite tired as this has been busy with preparing for move, she has had her Ibrance adjusted. She does note at the end of her cycle is when she has her greatest fatigue, and discussed energy conservation with goals in mind. 3. Depression. This is multifactorial, she is on her Paxil, with Abilify 2 mg at bedtime. She does feel the Ritalin has helped with some mood elevation as well. She is looking forward to relocating and being in the sunshine, cont inuing to normalize her current feelings of grief and loss in the context of the complexity of her illness. 4. Anxiety. She has only needed to use alprazolam intermittently, she does feel her current regimen is helping, as well as the addition of the Ritalin has calmed her racing thoughts. She feels like she is currently doing well with her medications, no changes recommended. Patient would most likely benefit from support group, expect with larger system may have more available resources. 5. Advanced care planning. Patient continues to set priorities, spending time with travel and family and friends. She continues to plan her treatments around this, encouraged to continue to focus on what matters most. Will transition her to palliative care team on discharge to [place]. 45 minutes with review Of oncology notes, labs, scans, [id number] with patient for counseling regarding pain and symptom management, psychosocial support, and anticipatory guidance. Patient will be transitioning to the [facility]
== END 2021-09-07 13:01 | disposition home or self-care (01) ==
LOC: PC 13:00
PROVIDERS: ATTEND Nurse Practitioner Adult Health
DX: Z51.5 Encounter for palliative care (principal); G89.3 Neoplasm related pain (acute) (chronic); Z85.3 Personal history of malignant neoplasm of breast; C79.51 Secondary malignant neoplasm of bone; R53.83 Other fatigue; F32.A Depression, unspecified; F41.9 Anxiety disorder, unspecified; K59.03 Drug induced constipation; T40.2X5A Adverse effect of other opioids, initial encounter; Z79.899 Other long term (current) drug therapy; Z63.4 Disappearance and death of family member
CPT/HCPCS: 99215